=== PATIENT | female | born 1995 | race Caucasian/White ===

== ENCOUNTER 2025-04-25 12:28 | Emergency (ER) | payer OTHER, SELFPAY ==
--- OUTSIDE RECORDS SUMMARY | 2025-04-25 12:31 | XMS_ITS | Continuity of Care Document ---
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 Name Role Phone Unavailable Unavailable Unavailable Allergies, Adverse Reactions, Alerts Substance Reaction Status Criticality No Known Allergies Active No Inform ation Medications Medication Instructions Dosage Effective Dates (start - stop) Status Comments Liletta 18.6 mcg/24 hour (3 years) intrauterine device as directed - No Longer Active Procedures Procedure Date OFFICE OUTPT NEW 60 MIN URINE TEST, BY VISUAL COLOR CO MPARISON METHODS Urinalysis, Auto, w/o Scope COLLECTION OF VENOUS BLOOD BY VENIPUNCTU RE THYROID STIMULATING HORMONE (TSH) IAAD EIA HEP B SURF AG HEPATITIS C ANTIBODY; HIV-1 Antigen, W/HIV-1 & HIV-2 Antibody, Single Re BLOOD COUNT; COMPLETE (CBC), AUTOMATED (HGB, HCT, RBC, WBC AND PLATELET COUNT) SYPHILIS TEST; QUALITATIVE (EG, VDRL, RP R, ART) Advance Directives Directive Yes / No Effective Date File Name No Information Encounters Encounter Description Practice Location Reason(s) For Visit Diagnoses Date Provider Providers Copied on Encounter [facility], [address], [place], [place], [id number] , [place] tel:[phone] [facility] No Information 7 No Information OFFICE OUTPT NEW 60 MIN [facility], [address], [place], [place], [id number] , [place] tel: [phone] [facility] BC consult (chief complaint) Encounter for other general counseling and advice on contraceptionExces sive bleeding in the premenopausal periodEncntr for lithographic photographer exam (general) (routine) w abnormal findings 1-201 7 No Information Family History Family Member Type Diagnosis Age At Onset Problem (finding) No family history of Ca ncer, ovarian Problem (finding) No family history of Ca ncer, colon Problem (finding) No family history of Ca ncer, breast Payers Payer name Insurance type Covered alliance party ID Authoriza tion(s) No Information Social History Type Description Quantity Date Captured Comments Sex Female Smoking Status No Information Chief Complaint And Reason For Visit No Information Reason For Referral Reason For Referral No Information History Of Present Illness Encounter Date Complaint History Of Prese nt Illness BC consult 21 yr old G0 her e for new annual examno pmhx, no pshxSA, ocps--sprintecno papsunhappy with ocps, when started she felt like she was bleeding every day if she only took one, then started taking two per day which stopped her bleedingno stdss/p gardasil Functional Status Date Functional Assessmen t No Information Instructions Date Instruction Additional Infor kika Reversible methods o f contraception discussed with patient. Related to Encounter for other general counseling and advice on contraception Increase physical activity. Rela yash to Encounter for other general counseling and advice on contraception Assessments Type Assessment Date No Information Patient Care Teams Name Effective Dates (start - stop) Status Members No Information
--- OUTSIDE RECORDS SUMMARY | 2025-04-25 12:31 | XMS_ITS | Data Portability ---
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 Plan of Treatment Reminders Order Date Submit Date Provider Last Modified By Organization Details Last Modified Time Details Appointments None recorded . Lab cytology report, thin prep, smear or scraping , cervical or vaginal 2024 025 [email or web address] [facility] (Centralized Electronic Ordering - All Locations), Patient Can Go To The Location Of Their Choice, [address] 5 16:45:01 TSH, ultra-se nsitive, serum 2024 025 [facility], [address], [place], [address], 5 08:23:45 CMP, serum or plasma 2024 025 [facility], [address], [place], [address], 5 08:23:44 lipid panel, serum 2024 025 [facility], [address], [place], [address], 5 08:23:43 CBC 2024 025 [facility], [address], [place], [address], 5 08:23:46 urinalys is, dipstick 2022 023 In-Office Order, Internal Use Only DO Not Attach Compendium DO Not Attach Compendium, Do Not Delete/merge, [id number] 3 10:04:51 culture, urine 2022 023 [facility], [address] [facility] [address], [place], [address], 3 07:13:19 cytology report, thin prep, smear or scraping , cervical or vaginal 2022 023 [facility], [address] [facility] [address], [place], [address], 3 16:13:46 Referral breast surgery referral 2022 023 [facility] Breast Surgery: Sophia francisco MD, [facility], [place], [address], 3 11:40:21 Procedures None recorded . Surgeries None recorded . Imaging US, thyroid 2024 025 [facility] Carrie [facility] Scheduling, [address] [place], [address], 5 17:37:21 XR, lumbosac ral spine, 2 or 3 view 2022 023 [email or web address] Carrie [facility] Scheduling, [address] [place], [address], 4 09:09:33 US, pelvis, transabd ominal + transvag inal 2022 023 [facility], [address] [facility] [place], [address], 3 16:29:29 Medication Orders sumatrip prescott 25 mg tablet 2024 025 [facility] [place], [address], 5 11:38:55 Macrobid 100 mg capsule 2022 023 [email or web address] [facility], [address] [place], [address], 5 11:21:59 naproxen 500 mg tablet 2022 023 [email or web address] [facility], [address] [place], [address], 10:35:47 sumatrip prescott 25 mg tablet 2022 023 RADHA [facility], [address] [place], [address], 10:04:58 Patient TargetsNo targets recorded. Patient Instructions Encounter Date Encounter Id Patient Instructions Last Modified By Organization Details Last Modified Time 09/03/2023 [id number] painful urinatio n (dysuria): care instructions Not available 09/03/2023 10:06:32 abdominal pain: care instructions Not available 09/03/2023 10:04:51 back care and preventing injuries: care instructions Not available 09/03/2023 10:07:31 - Avoid heavy lifting and over-exertion. - Avoid bed-rest do some gentle stretching and continue with normal activities. - Use ice to relieve pain, 15 minutes every 2 4 hours. - Use heat to relax muscles, 15 minutes every 2 4 hours. - Sleep on a firm surface and avoid lying on the sofa. Not available 09/03/2023 10:11:23 Plan pending imaging results. f/u as needed DWP barriers to care: none Not available 09/03/2023 10:11:30 12/14/2024 [id number] Well Visit, Ages 18 to 65: Care Instructions Not available 12/14/2024 11:39:17 Increase intake of fresh fruits, and vegetables. Avoid packaged foods and fast foods. Follow a low salt diet, drink at least 8-10 8oz glasses of water a day, exercise most days of the week. Take all medications as prescribed. Keep appointments with PCP and all specialists. Not available 12/14/2024 11:39:03 Plan pending imaging results. f/u as needed DWP barriers to care: none Not available 12/14/2024 11:39:12 01/11/2025 [id number] learning about breast cancer screening alia Not available 01/11/2025 11:52:10 03/02/2025 [id number] middle ear fluid : care instructions Not available 03/02/2025 15:49:57 Avoid potential triggers, take allergy medication daily. Sleep with windows closed and replace filters in HVAC regularly. Not available 03/02/2025 15:50:15 Follow-up as needed Not available 03/02/2025 15:50:21 Reason for Referral Breast Surgery Referral for Mass of right breast Referring Physician: Usman Vazquez, LEAD COATER, Encounter Date: 07/01/2023 Results Created Date Observation Date Name Description Value Unit Range Abnormal Flag Note LastModifiedBy Organization Detail LastModifiedTime 07/01/2007/03/2023 IGP,C TNGTV ,RFX APTIM A HPV ASCU chlamydia, nuc. acid amp Negati ve negati ve Not Available [facility] ([facility]) [address] [place], [address], 07/04/2023 16:13:46 07/01/2007/03/2023 IGP,C TNGTV ,RFX APTIM A HPV ASCU gonococcus, nuc. acid amp Negati ve negati ve Not Available [facility] ([facility]) [address] [place], [address], 07/04/2023 16:13:46 07/01/20 23 07/03/2023 IGP,C TNGTV ,RFX APTIM A HPV ASCU trich vag by ROBER Negati ve negati ve Not Available [facility] ([facility]) [address] [place], [address], 07/04/2023 16:13:46 07/01/20 23 07/04/2023 IGP,C TNGTV ,RFX APTIM A HPV ASCU diagnosis: Lisset michel NEGAT FIONA FOR INTRA EPITH ELIAL LESIO N OR MIKE OROSCO . THIS SPECI MEN WAS RESCR EENED PART OF OUR QUALI TY CONTR OL PROGR AM. Not Available [facility] ([facility]) [address] [place], [address], 07/04/2023 16:13:46 07/01/20 23 07/04/2023 IGP,C TNGTV ,RFX APTIM A HPV ASCU specimen adequacy: Lisset michel Satis facto ry for evalu ation . Endoc ervic al and/o r squam ous metap lasti c cells (endo cervi renee compo nent) are prese nt. Not Available [facility] ([facility]) [address] [facility], [place], [address], 07/04/2023 16:13:46 07/01/20 23 07/04/2023 IGP,C TNGTV ,RFX APTIM A HPV ASCU clinician provided ICD10: Lisset michel Z01.4 19 Not Available [facility] ([facility]) [address] [place], [address], 07/04/2023 16:13:46 07/01/20 23 07/04/2023 IGP,C TNGTV ,RFX APTIM A HPV ASCU performed by: Lisset Quintanilla Cytot jesus michel (ASCP ) Not Available [facility] ([facility]) [address] [place], [address], 07/04/2023 16:13:46 07/01/20 23 07/04/2023 IGP,C TNGTV ,RFX APTIM A HPV ASCU QC reviewed by: Commen t Alessandro ie A Naylo r, Cytot echno logis t Not Available [facility] ([facility]) [address] [place], [address], 07/04/2023 16:13:46 07/01/20 23 07/04/2023 IGP,C TNGTV ,RFX APTIM A HPV ASCU . . Not Available [facility] ([facility]) [address] [facility], [place], [address], 07/04/2023 16:13:46 07/01/20 23 07/04/2023 IGP,C TNGTV ,RFX APTIM A HPV ASCU note: Commen t The Pap smear is a scree sharlene test desoctavia almazan to aid in the detec tion of bhakti ligna nt and malig nant condi tions of the uteri ne cervi x. It is not a diagn ostic proce dure and shoul d not be used as the sole means of detec ting cervi renee cance r. Both false -posi tive and false -nega tive repor ts do occur . Not Available [facility] ([facility]) [address] [facility], [place], [address], 07/04/2023 16:13:46 07/01/20 23 07/04/2023 IGP,C TNGTV ,RFX APTIM A HPV ASCU test methodology: Commen t This liqui d based ThinP rep(R ) pap test was scree tha with the use of an image guide d syste m. Not Available [facility] ([facility]) [address] [facility], [place], [address], 07/04/2023 16:13:46 07/01/20 23 07/04/2023 IGP,C TNGTV ,RFX APTIM A HPV ASCU . Commen t The HPV DNA refle x crite baldo were not met with this speci men resul t there fore, no HPV testi ng was perfo rmed. Not Available [facility] ([facility]) [address] [place], [address], 07/04/2023 16:13:46 09/03/20 23 09/05/2023 URINE CULTU RE,CO MPREH ENSIV E urine culture,comp rehensive Final report Not Available [facility] ([facility]) [address] [facility], [place], [address], 09/05/2023 07:13:19 09/03/20 23 09/05/2023 URINE CULTU RE,CO MPREH ENSIV E result 1 Commen t Mixed uroge nital darlin 10,00 0-25, 000 colon y formi ng units per mL Not Available [facility] ([facility]) [address] [facility], [place], [address], 09/05/2023 07:13:19 09/03/20 23 09/03/2023 urina lysis , dipst ick Leukocytes Trace Not Available In-Offi ce Order Internal Use Only DO Not Attach Compendium DO Not Attach Compendium, Do Not Delete/merge, 09/03/2023 09:50:53 09/03/20 23 09/03/2023 urina lysis , dipst ick Nitrite negati ve Not Available In-Office Order Internal Use Only DO Not Attach Compendium DO Not Attach Compendium, Do Not Delete/merge, 09/03/2023 09:50:53 09/03/20 23 09/03/2023 urina lysis , dipst ick Urobilinogen 1 Not Available In-Of fice Order Internal Use Only DO Not Attach Compendium DO Not Attach Compendium, Do Not Delete/merge, 09/03/2023 09:50:53 09/03/20 23 09/03/2023 urina lysis , dipst ick Protein Negati ve Not Available In-Office Order Internal Use Only DO Not Attach Compendium DO Not Attach Compendium, Do Not Delete/merge, 09/03/2023 09:50:53 09/03/20 23 09/03/2023 urina lysis , dipst ick pH 5.5 Not Available In-Office Order Internal Use Only DO Not Attach Compendium DO Not Attach Compendium, Do Not Delete/merge, 09/03/2023 09:50:53 09/03/2009/03/2023 urina lysis , dipst ick Blood Non-He molyze d: Trace Not Available In-Office Order Internal Use Only DO Not Attach Compendium DO Not Attach Compendium, Do Not Delete/merge, 09/03/2023 09:50:53 09/03/2009/03/2023 urina lysis , dipst ick Specific [place] 1.015 Not Available In-Off ice Order Internal Use Only DO Not Attach Compendium DO Not Attach Compendium, Do Not Delete/merge, 09/03/2023 09:50:53 09/03/2009/03/2023 urina lysis , dipst ick Ketone Negati ve Not Available In-Office Order Internal Use Only DO Not Attach Compendium DO Not Attach Compendium, Do Not Delete/merge, [id number] 09/03/2023 09:50:53 09/03/2009/03/2023 urina lysis , dipst ick Bilirubin Negati ve Not Available In-Office Order Internal Use Only DO Not Attach Compendium DO Not Attach Compendium, Do Not Delete/merge, 09/03/2023 09:50:53 09/03/2009/03/2023 urina lysis , dipst ick Glucose Negati ve Not Available In-Office Order Internal Use Only DO Not Attach Compendium DO Not Attach Compendium, Do Not Delete/merge, 09/03/2023 09:50:53 09/03/20 23 09/03/2023 urina lysis , dipst ick Appearance Slight ly Cloudy Not Available In-Office Order Internal Use Only DO Not Attach Compendium DO Not Attach Compendium, Do Not Delete/merge, 09/03/2023 09:50:53 09/03/20 23 09/03/2023 urina lysis , dipst ick Color Yellow Not Available In-Office Order Internal Use Only DO Not Attach Compendium DO Not Attach Compendium, Do Not Delete/merge, 09/03/2023 09:50:53 12/15/19 25 12/15/2024 LIPID PANEL cholesterol, total 243 mg/dL 100-19 9 above high normal Not Available [facility] ([facility]) [address] [place], [address], 12/15/2024 08:23:43 12/15/19 25 12/15/2024 LIPID PANEL triglyceride s 36 mg/dL 0-149 Not Available [facility] ([facility]) [address] [place], [address], 12/15/2024 08:23:43 12/15/19 25 12/15/2024 LIPID PANEL HDL cholesterol 70 mg/dL >39 Not Available [facility]) [address] [place], [address], 12/15/2024 08:23:43 12/15/19 25 12/15/2024 LIPID PANEL VLDL cholesterol renee 5 mg/dL 5-40 Not Available [facility] ([facility]) [address] [place], [address], 12/15/2024 08:23:43 12/15/19 25 12/15/2024 LIPID PANEL LDL chol calc ([facility]) 168 mg/dL 0-99 above high normal Not Available [facility] ([facility]) [address] [place], [address], 12/15/2024 08:23:43 12/15/19 25 12/15/2024 COMP. METAB OLIC PANEL (14) glucose 80 mg/dL 70-99 Not Available [facility] ([facility]) [address] [place], [address], 12/15/2024 08:23:44 12/15/19 25 12/15/2024 COMP. METAB OLIC PANEL (14) BUN 13 mg/dL 6-20 Not Available [facility] ([facility]) [address] [place], [address], 12/15/2024 08:23:44 12/15/19 25 12/15/2024 COMP. METAB OLIC PANEL (14) creatinine 0.66 mg/dL 0.57-1 .00 Not Available [facility] ([facility]) [address] [facility], [place], [address], 12/15/2024 08:23:44 12/15/19 25 12/15/2024 COMP. METAB OLIC PANEL (14) eGFR 123 mL/mi n/1.7 3 >59 Not Available [facility] ([facility]) [address] [facility], [place], [address], 12/15/2024 08:23:44 12/15/19 25 12/15/2024 COMP. METAB OLIC PANEL (14) BUN/creatini ne ratio 20 9-23 Not Available [facility] ([facility]) [address] [facility], [place], [address], 12/15/2024 08:23:44 12/15/19 25 12/15/2024 COMP. METAB OLIC PANEL (14) sodium 138 mmol/ L 134-14 4 Not Available [facility] ([facility]) [address] [place], [address], 12/15/2024 08:23:44 12/15/19 25 12/15/2024 COMP. METAB OLIC PANEL (14) potassium 4.5 mmol/ L 3.5-5. 2 Not Available [facility] ([facility]) [address] [place], [address], 12/15/2024 08:23:44 12/15/19 25 12/15/2024 COMP. METAB OLIC PANEL (14) chloride 105 mmol/ L 96-106 Not Available [facility] ([facility]) [address] [facility], [place], [address], 12/15/2024 08:23:44 12/15/19 25 12/15/2024 COMP. METAB OLIC PANEL (14) carbon dioxide, total 21 mmol/ L 20-29 Not Available [facility] ([facility]) [address] [facility] [place], [address], 12/15/2024 08:23:44 12/15/19 25 12/15/2024 COMP. METAB OLIC PANEL (14) calcium 9.2 mg/dL 8.7-10 .2 Not Available [facility] ([facility]) [address] [facility] [place], [address], 12/15/2024 08:23:44 12/15/19 25 12/15/2024 COMP. METAB OLIC PANEL (14) protein, total 6.8 g/dL 6.0-8. 5 Not Available [facility] ([facility]) [address] [facility] [place], [address], 12/15/2024 08:23:44 12/15/19 25 12/15/2024 COMP. METAB OLIC PANEL (14) albumin 4.4 g/dL 4.0-5. 0 Not Available [facility] ([facility]) [address] [facility] [place], [address], 12/15/2024 08:23:44 12/15/19 25 12/15/2024 COMP. METAB OLIC PANEL (14) globulin, total 2.4 g/dL 1.5-4. 5 Not Available [facility] ([facility]) [address] [facility] [place], [address], 12/15/2024 08:23:44 12/15/19 25 12/15/2024 COMP. METAB OLIC PANEL (14) bilirubin, total 0.3 mg/dL 0.0-1. 2 Not Available [facility] ([facility]) [address] [facility] [place], [address], 12/15/2024 08:23:44 12/15/19 25 12/15/2024 COMP. METAB OLIC PANEL (14) alkaline phosphatase 43 IU/L 44-121 below low normal Not Available [facility] ([facility]) [address] [place], [address], 12/15/2024 08:23:44 12/15/19 25 12/15/2024 COMP. METAB OLIC PANEL (14) AST (SGOT) 12 IU/L 0-40 Not Available [facility] ([facility]) [address] [place], [address], 12/15/2024 08:23:44 12/15/19 25 12/15/2024 COMP. METAB OLIC PANEL (14) ALT (SGPT) 8 IU/L 0-32 Not Available [facility] ([facility]) [address] [facility], [place], [address], 12/15/2024 08:23:44 12/15/19 25 12/15/2024 TSH RFX ON ABNOR MAL TO FREE T4 TSH 2.600 uIU/m L 0.450- 4.500 Not Available [facility] ([facility]) [address] [place], [address], 12/15/2024 08:23:45 12/15/19 25 12/15/2024 CBC, PLATE LET, NO DIFFE RENTI AL WBC 5.8 x10e3 /uL 3.4-10 .8 Not Available [facility] ([facility]) [address] [place], [address], 12/15/2024 08:23:46 12/15/19 25 12/15/2024 CBC, PLATE LET, NO DIFFE RENTI AL RBC 4.35 x10e6 /uL 3.77-5 .28 Not Available [facility] ([facility]) [address] [place], [address], 12/15/2024 08:23:46 12/15/19 25 12/15/2024 CBC, PLATE LET, NO DIFFE RENTI AL hemoglobin 13.5 g/dL 11.1-1 5.9 Not Available [facility] ([facility]) [address] [facility], [place], [address], 12/15/2024 08:23:46 12/15/1912/15/2024 CBC, PLATE LET, NO DIFFE RENTI AL hematocrit 40.4 % 34.0-4 6.6 Not Available [facility] ([facility]) [address] [facility], [place], [address], 12/15/2024 08:23:46 12/15/19 25 12/15/2024 CBC, PLATE LET, NO DIFFE RENTI AL MCV 93 fL 79-97 Not Available [facility] ([facility]) [address] [facility], [place], [address], 12/15/2024 08:23:46 12/15/19 25 12/15/2024 CBC, PLATE LET, NO DIFFE RENTI AL MCH 31.0 pg 26.6-3 3.0 Not Available [facility] ([facility]) [address] [facility], [place], [address], 12/15/2024 08:23:46 12/15/1912/15/2024 CBC, PLATE LET, NO DIFFE RENTI AL MCHC 33.4 g/dL 31.5-3 5.7 Not Available [facility] ([facility]) [address] [facility], [place], [address], 12/15/2024 08:23:46 12/15/1912/15/2024 CBC, PLATE LET, NO DIFFE RENTI AL RDW 11.9 % 11.7-1 5.4 Not Available [facility] ([facility]) [address] [facility], [place], [address], 12/15/2024 08:23:46 12/15/19 25 12/15/2024 CBC, PLATE LET, NO DIFFE RENTI AL platelets 215 x10e3 /uL 150-45 0 Not Available [facility] ([facility]) [address] [place], [address], 12/15/2024 08:23:46 01/12/20 25 01/13/2025 IGP, RFX APTIM A HPV ASCU diagnosis: LISSET JAIMES FOR INTRA EPITH ELIAL LESIO N OR MIKE OROSCO . Not Available [facility] ([facility]) [address] [facility], [place], [address], 01/13/2025 16:45:01 01/12/20 25 01/13/2025 IGP, RFX APTIM A HPV ASCU specimen adequacy: LISSET Michel Satis facto ry for evalu ation . No endoc ervic al compo nent is ident ified . Not Available [facility] ([facility]) [address] [facility], [place], [address], 01/13/2025 16:45:01 01/12/20 25 01/13/2025 IGP, RFX APTIM A HPV ASCU clinician provided ICD10: LISSET Michel Z01.4 19 Not Available [facility] ([facility]) [address] [place], [address], 01/13/2025 16:45:01 01/12/20 25 01/13/2025 IGP, RFX APTIM A HPV ASCU performed by: Desi Cardenas (ASCP ) Not Available [facility] ([facility]) [address] [place], [address], 01/13/2025 16:45:01 01/12/20 25 01/13/2025 IGP, RFX APTIM A HPV ASCU . . Not Available [facility] ([facility]) [address] [facility], [place], [address], 01/13/2025 16:45:01 01/12/20 25 01/13/2025 IGP, RFX APTIM A HPV ASCU note: COMMEN T The Pap smear is a scree sharlene test desig tha to aid in the detec tion of bhakti ligna nt and malig nant condi tions of the uteri ne cervi x. It is not a diagn ostic proce dure and shoul d not be used as the sole means of detec ting cervi renee cance r. Both false -posi tive and false -nega tive repor ts do occur . Not Available [facility] ([facility]) [address] [place], [address], 01/13/2025 16:45:01 01/12/20 25 01/13/2025 IGP, RFX APTIM A HPV ASCU test methodology: COMMEN T This liqui d based ThinP rep(R ) pap test was scree tha with the use of an image guide lucio ohara. Not Available [facility] ([facility]) [address] [place], [address], 01/13/2025 16:45:01 01/12/20 25 01/13/2025 IGP, RFX APTIM A HPV ASCU . COMMEN T The HPV DNA refle x crite baldo were not met with this speci men resul t there fore, no HPV testi ng was perfo rmed. Not Available [facility] ([facility]) [address] [place], [address], 01/13/2025 16:45:01 01/12/20 25 01/13/2025 IGP, RFX APTIM A HPV ASCU diagnosis: COMMEN T NEGAT FIONA FOR INTRA EPITH ELIAL LESIO N OR MALIG ANA LUISA . Not Available [facility] ([facility]) [address] [place], [address], 01/25/2025 21:46:36 01/12/20 25 01/13/2025 IGP, RFX APTIM A HPV ASCU specimen adequacy: COMMEN T Satis facto ry for evalu ation . No endoc ervic al compo nent is ident ified . Not Available [facility] ([facility]) [address] [place], [address], 01/25/2025 21:46:36 01/12/20 25 01/13/2025 IGP, RFX APTIM A HPV ASCU clinician provided ICD10: LISSET Michel Z01.4 19 Not Available [facility] ([facility]) [address] [place], [address], 01/25/2025 21:46:36 01/12/20 25 01/13/2025 IGP, RFX APTIM A HPV ASCU performed by: LISSET babin, Cytol ogist (ASCP ) Not Available [facility] ([facility]) [address] [place], [address], 01/25/2025 21:46:36 01/12/20 25 01/13/2025 IGP, RFX APTIM A HPV ASCU . . Not Available [facility] ([facility]) [address] [place], [address], 01/25/2025 21:46:36 01/12/20 25 01/13/2025 IGP, RFX APTIM A HPV ASCU note: LISSET Michel The Pap smear is a scree sharlene test desig tha to aid in the detec tion of bhakti ligna nt and malig nant condi tions of the uteri ne cervi x. It is not a diagn ostic proce dure and shoul d not be used as the sole means of detec ting cervi renee cance r. Both false -posi tive and false -nega tive repor ts do occur . Not Available [facility] ([facility]) [address] [place], [address], 01/25/2025 21:46:36 01/12/20 25 01/13/2025 IGP, RFX APTIM A HPV ASCU test methodology: LISSET Michel This liqui d based ThinP rep(R ) pap test was scree tha with the use of an image guide lucio systvic m. Not Available [facility] ([facility]) [address] [facility], [place], [address], 01/25/2025 21:46:36 01/12/20 25 01/13/2025 IGP, RFX APTIM A HPV ASCU . COMMEN T The HPV DNA refle x crite baldo were not met with this speci men resul t there fore, no HPV testi ng was perfo rmed. Not Available [facility] ([facility]) [address] [facility], [place], [address], 01/25/2025 21:46:36 09/03/[address], abdom en + pelvi s, w/ contr ast No observ ation record ed. [facility] Not Available 08/08 10:04:47 12/23/19 25 12/18/2024 US, thyro id No observ ation record ed. [email or web address] [address] , [place], [address], 12/30/2024 09:22:07 Result Notes None recorded. Problems Name Problem SNOMED Code Status Onset Date Resolution Date Notes Provider Name and Address Organization Details Recorded Time Late entry into care [id number] Completed pt educated on importan ce of care. Susannah Fuller MA [facility], [place] - SI 11:33:33 Depressi ve disorder [id number] Completed 03/07/21: pt declined medicati on and counseli ng and reports depressi on resolved . PT notified to let us know if issues occur and educated on warning signs 02/01/21: Counsele d on depressi on manageme nt includin g establis rai good sleep hygiene and routine. Pt wanting to Fluoxeti ne. Pt educated on medicati on risks includin g risks in pregnanc y and black box warnings and instruct ions given. Pt notified to call office if issues occur. Counseli ng referral ordered and pt notified of walk in counseli ng appointm ent at [facility] in [place], numbers given to pt to set up appointm ent and pt notified to call office if issues with referral . Follow up with monika lou and Follow up here in 1 month. Call office if issues occur before then. Avelino valdes on seeking help from 911 or go to ER for suicidal or homicida l thoughts . Pt verbaliz ed understa nding. Susannah ANIKA Fuller [place], [place] - [place] 11:33:33 Anemia of pregnanc y [id number] Completed Pt educated on importan ce of treatmen t. Pt educated on iron suppleme nt with colace and diet changes. Repeat labs at 28 weeks. Susannah ANIKA Fuller [place], [place] - [facility] 11:33:33 Low back pain in pregnanc y [id number] Completed Pt educated on manageme nt and use of maternit y belt and exercise and stretchi ng. 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 Recommen ded PT referral . Pt declined . Pt educated on warning signs and notified to call call office if issues occur. Susannah ANIKA Fuller [place], [place] - [place] 1 11:33:33 Seasonal allergy [id number] Sherif Balderas APN, OUTPATIENT ADMITTING CLERK-C Attn: Roddy g,[address] [place], [address], [place] - [facility] 3 09:50:23 Migraine [id number] Active Jane Balderas APN, OUTPATIENT ADMITTING CLERK-C Attn: Roddy g,[address] [place], [address], [place] - [facility] 3 09:50:23 Pregnanc y [id number] Completed 201706/10/2018 Bharti Vasques LPN null, [place] - [facility] 1 09:34:34 Pregnanc y [id number] Completed 202007/21/2021 Bharti Vasques LPN null, [place] - [facility] 1 09:34:34 Administ ration of diphther ia, pertussi s, and tetanus vaccine Completed 2020 Susannah Fuller MA [place], [place] - [place] 11:33:33 Generali zed anxiety disorder [id number] Active 2021 Jane Balderas APN OUTPATIENT ADMITTING CLERK-C Attn: Roddy giovanny,[address] [facility], [place], [place], [address] [place] [address] 2, [facility], [facility] 3 09:50:23 Migraine with aura [id number] Active 2021 Jane Balderas APN, OUTPATIENT ADMITTING CLERK-C Attn: Roddy giovanny,[address] [facility], [place], [place], [address] [place] [address] 2, [facility], [facility] 3 09:50:23 Nasal congesti on [id number] Active 2021 Jane Balderas APN OUTPATIENT ADMITTING CLERK-C Attn: Leathaakin baltazar,[address] [facility], [place], [place], [address] [place] [address] 2, [facility], [facility] 3 09:50:23 Hyperlip idemia [id number] Active 2021 Jane Balderas APN OUTPATIENT ADMITTING CLERK-C Attn: Roddy giovanny,[address] [facility], [place], [place], [address] [place] [address] 2, [facility] 3 09:50:23 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 Procedures Surgical History Date Name Laterality Status Provider Name and Address Organization Details Recorded Time 5 Date of Last Pap Smear completed Jenifer Muñiz MA [facility] 01/15/2025 09:54:55 4 Breast Implants completed Lashell Ivory [facility] 01/11/2025 10:41:26 Imaging Results None recorded. Procedure Notes None recorded. Medical Equipment None Reported. Allergies No known drug allergies Medications Name Sig Start Date Stop Date Status Note LastModified by Organization Details LastModified Time stool [id number] cap TAKE 1 CAPSULE BY MOUTH TWICE DAILY 11/24 /2021 completed Not Available Not Available Not Available iron 65mg tab TAKE 1 TABLET BY MOUTH THREE TIMES DAILY 08/30 completed Not Available Not Available Not Available celecoxib 200 mg capsule TAKE 2 CAPSULES BY MOUTH THE NIGHT BEFORE SURGERY AND THEN 1 CAPSULE BY MOUTH TWICE DAILY 12/14 completed Not Available Not Available Not Available Colace 100 mg capsule Take 1 capsule twice a day by oral route. 12/29 completed Not Available Not Available Not Available cefuroxime axetil 250 mg tablet TAKE 2 TABLETS BY MOUTH THE NIGHT BEFORE SURGERY THEN 1 TWICE DAILY 12/14 completed Not Available Not Available Not Available cetirizine 10 mg tablet Take 1 tablet every day by oral route. active Not Available Not Available No t Available sumatriptan 25 mg tablet Take by mouth one tablet at onset of headache, may repeat in two hours if not improved. 2024 active Not Available Not Available Not Avai lable terconazole 0.8 % vaginal cream APPLY 1 APPLICATO RFUL VAGINALLY ONCE DAILY AT BEDTIME FOR 3 DAYS 08/30 completed Not Available Not Available Not Available triamcinolo ne acetonide 0.5 % topical ointment APPLY OINTMENT TOPICALLY TO AFFECTED AREA TWICE DAILY 08/10 completed Not Available Not Available Not Available metronidazo le 500 mg tablet Take 1 tablet twice a day by oral route. 07/08 completed Not Available Not Available Not Available sulfamethox azole 800 mg-trimetho prim 160 mg tablet TAKE 1 TABLET BY MOUTH TWICE DAILY FOR 3 DAYS 07/01 completed Not Available Not Available Not Available Vitamin tablet Take 1 tablet every day by oral route. 11/02 completed Not Available Not Available Not Available oxycodone-a cetaminophe n 5 mg-325 mg tablet TAKE 1 TABLET BY MOUTH EVERY 4 HOURS NEEDED FOR PAIN 12/14 completed Not Available Not Available Not Available Metrogel Vaginal 0.75 % (37.5 mg/5 gram) Insert 1 applicato rful every day by vaginal route. 11/02 completed Not Available Not Available Not Available ibuprofen 600 mg tablet 11/02 completed Not Available Not Available Not Available norethindro ne (contracept fiona) 0.35 mg tablet Take 1 tablet every day by oral route. 11/02 completed Not Available Not Available Not Available Terazol 7 0.4 % vaginal cream Insert 1 applicato rful every day by vaginal route for 7 days. 03/13 completed Not Available Not Available Not Available fluticasone propionate 50 mcg/actuati on nasal spray,suspe nsion USE 1 SPRAY(S) IN EACH NOSTRIL TWICE DAILY FOR 7 DAYS 01/25 completed Not Available Not Available Not Available sertraline 50 mg tablet TAKE 1 TABLET BY MOUTH ONCE DAILY 04/12 completed Not Available Not Available Not Available naproxen 500 mg tablet TAKE 1 TABLET BY MOUTH TWICE DAILY 01/11 completed Not Available Not Available Not Available diazepam 5 mg tablet TAKE 1 TABLET BY MOUTH THREE TIMES DAILY NEEDED FOR MUSCLE SPASMS 01/11 completed Not Available Not Available Not Available Sprintec (28) 0.25 mg-0.035 mg tablet Take 1 tablet every day by oral route. 12/29 completed Not Available Not Available Not Available rosuvastati n 10 mg tablet Take 1 tablet every day by oral route. 12/25 completed Not Available Not Available Not Available nitrofurant oin monohydrate /macrocryst als 100 mg capsule TAKE 1 CAPSULE BY MOUTH EVERY 12 HOURS FOR 5 DAYS 12/14 completed Not Available Not Available Not Available 02/06 completed otc Not Available Not Available Not Available FeroSul 325 mg (65 mg iron) tablet TAKE 1 TABLET BY MOUTH THREE TIMES DAILY 12/29 completed Not Available Not Available Not Available Lo Loestrin Fe 11/28 completed Not Available Not Available Not Available 28 mg iron-800 mcg tablet Take 1 tablet every day by oral route. 08/30 completed Not Available Not Available Not Available Se- 19 29 mg iron-1 mg tablet TAKE 1 TABLET BY MOUTH ONCE DAILY 08/30 completed Not Available Not Available Not Available Vitals Date Recorded Body height Body mass index (BMI) Body weight Oxygen saturation Oxygen saturation in Arterial blood by Pulse oximetry Heart rate Body temperature Systolic And Diastolic Provider Name and Address Organization Details Last Updated DateTime 5 152.4 cm 21.5 kg/m2 80168.9 1 g 98 % 98 % 81 /min 98.9 [degF] 103/71 mm[Hg] Samantha Araujo MA [facility] 5 11:25:36 Date Recorded Body height Body mass index (BMI) Body weight Heart rate Systolic And Diastolic Provider Name and Address Organization Details Last Updated DateTime 01/11/2025 152.4 cm 21.4 kg/m2 95306.44 g 80 /min 119/78 mm[Hg] Lashell Ivory [facility] 01/11/2025 10:39:41 Date Recorded Body height Body mass index (BMI) Body weight Oxygen saturation Oxygen saturation in Arterial blood by Pulse oximetry Heart rate Respiratory rate Body temperature Systolic And Diastolic Provider Name and Address Organization Details Last Updated DateTime 5 152.4 cm 21.3 kg/m2 65563.5 7 g 98 % 98 % 92 /min 16 /min 98.7 [degF] 108/76 mm[Hg] Samantha Pena MA [facility] 5 12:30:28 Date Recorded Body height Provider Name an d Address Organization Details Last Updated DateTime 07/01/2023 152.4 cm Susannah Fuller MA [facility] 07/01/2023 15:22:46 Date Recorded Body height Body mass index (BMI) Body weight Oxygen saturation Oxygen saturation in Arterial blood by Pulse oximetry Heart rate Respiratory rate Body temperature Systolic And Diastolic Provider Name and Address Organization Details Last Updated DateTime 3 152.4 cm 19.7 kg/m2 32083.8 3 g 96 % 96 % 86 /min 16 /min 98.3 [degF] 104/68 mm[Hg] JESSICA Pollock [facility] 3 09:41:36 Social History Question Answer Notes LastModified by Organizat ion Details LastModified Time Tobacco Smoking Status Never Smoker Taya Garcia MA null, [facility] 01/31/2015 10:36:23 Do You Have An Advance Directive? No Information n ot available 12/29/2021 If You Are , What Was Your Level Of Alcohol Consumption Prior To ? None Information not available 11/28/2017 Animal Exposure? Yes [email or web address] Informat ion not available 01/31/2015 Do You Wear A Helmet When Biking? No [email or web address] Information not available 11/21/2015 Are You Blind Or Do You Have Difficulty Seeing? No Information n ot available 12/29/2021 Is Blood Transfusion Acceptable In An Emergency? Yes Information not available 11/28/2017 What Is Your Level Of Caffeine Consumption? Moderate [email or web address] Information not available 11/21/2015 Live With Cats/exposure To Cat Litter Yes Information not available 11/28/2017 How Much Tobacco Do You Chew? None Information not available 11/28/2017 What Type Of Cnc Applications Engineer Do You Use? None [email or web address] Information not available 11/21/2015 In The 14 Days Before Symptom Onset, Have You Had Close Contact With A Laboratory-confirm ed COVID-19 While That Case Was Ill? No Information n ot available 12/29/2021 In The 14 Days Before Symptom Onset, Have You Had Close Contact With A Person Who Is Under Investigation For COVID-19 While That Person Was Ill? No Information not available 12/29/2021 Have You Been To An Area Known To Be High Risk For COVID-19? No Information not available 12/29/2021 Are You Deaf Or Do You Have Serious Difficulty Hearing? No Information not available 12/29/2021 What Type Of Diet Are You Following? REGULAR [email or web address] Information n ot available 01/31/2015 Which Illicit Or Recreational Drugs Have You Used? Denies Information not available 11/28/2017 Education 12 Information no t available 11/28/2017 Have There Been Any Changes To Your Family Or Social Situation? No [email or web address] Information no t available 11/21/2015 Frequent Air Travel No Information not available 11/28/2017 Are There Any Guns Present In Your Home? No Information not available 12/29/2021 Illicit Drugs Pre- Denies Information not available 11/28/2017 Do You Use Insect Repellent Routinely? Yes [email or web address] Information not available 01/31/2015 Live Alone Or With Others? With Others Information not available 11/28/2017 Car Seat Type Or Seat Belt? Seat Belt Information not available 01/31/2015 Parent Involvement? Both Parents Involved [email or web address] Information not available 01/31/2015 Riding In Car Front Seat? Yes [email or web address] Information not available 01/31/2015 Marital Status Single Informatio n not available 11/28/2017 What Was The Date Of Your Most Recent Tobacco Screening? 01/11/2025 [email or web address] Information not available 01/11/2025 How Many Children Do You Have? 2 Information not available 12/29/2021 What Is Your Parents' Marital Status? [email or web address] Information not available 01/31/2015 Performs Monthly Self-breast Exam? No Information no t available 11/02/2020 Pool Exposure No [email or web address] Informatio n not available 11/21/2015 Do You Use Protection During Sex? No Information not available 11/02/2020 What Is Your Relationship Status? Single Information not available 06/10/2018 Do You Use Your Seat Belt Or Car Seat Routinely? Yes Information not available 12/29/2021 Seat Belts Used Routinely Yes Information not available 11/28/2017 Are You Sexually Active? Yes Information not available 11/28/2017 Do You Have Any Siblings? 1 Sister 1 Brother Information not available 01/31/2015 Do You Have Smoke And Carbon Monoxide Detectors In Your Home? Yes Information not available 01/31/2015 Are You Passively Exposed To Smoke? Yes [email or web address] Information no t available 01/31/2015 How Much Tobacco Do You Smoke? No Information not available 11/02/2020 Smoking Pre- No Information not available 11/28/2017 What Types Of Sporting Activities Do You Participate In? None [email or web address] Information not available 11/21/2015 General Stress Level Medium Information not available 11/28/2017 Do You Use Sunscreen Routinely? No Information not available 11/28/2017 Has Tobacco Cessation Counseling Been Provided? No [email or web address] Information not available 12/25/2022 Year In School 12 [email or web address] Informati on not available 11/21/2015 Sex: Female Functional Status Question Answer Note LastModified by Organizat ion Details LastModified Time Do you use any illicit or recreational drugs? No [email or web address] Information not available 01/25/2022 Do you or have you ever used any other forms of tobacco or nicotine? No [email or web address] Information not available 01/25/2022 What is your level of alcohol consumption? None Information not available 11/28/2017 Do you or have you ever used smokeless tobacco? Never used [email or web address] Information not available 11/02/2020 Are you currently employed? Yes Information not available 12/25/2022 Are you able to care for yourself? 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 Never used electronic cigarettes Information not available 11/02/2020 What is your exercise level? None Information not available 12/29/2021 Mental Status Question Answer Note LastModified by Organization D etails LastModified Time Do you feel stressed (tense, restless, nervous, or anxious, or unable to sleep at night)? [id number] [email or web address] Information not available 12/14/2024 Are you or have you been involved with bullying? No [email or web address] Information not available 01/31/2015 Family History Relationship Description Onset Age of this Age Resolved Age Notes LastModified by Organization Details LastModified Time Maternal Grandmother [facility] Not available 2017 09:05:28 Paternal Grandmother Leukemia [place] Not available 11/08 09:05:16 Father Hypercholest erolemia [place] Not available 2017 09:05:52 Paternal Grandfather Hypercholest erolemia [place] Not available 2017 09:05:52 Medical History Condition Response Coronary Artery Disease N Other N Atrial Fibrillation N High Blood Pressure N Blood Diseases N Breast Cancer N Lung Disease N Depression Y COPD N Blood Clots N Developmental or Behavioral Disorders N Breast Problem N Premature N Anesthesia Complications N Headaches/Migraines Y Anxiety Disorder Y Muscle, Joint, or Bone Problems N Vision or Eye Problems N Head Injury/Concussion N Infertility N Polyps N Acid Reflux (GERD) N Cancer N Stroke N ADHD N Endometriosis N Bladder or Kidney Problems N High Cholesterol N Liver Disease N Schizophrenia N Headaches Y Ear or Hearing Problems N Thyroid Problems N Kidney or Bladder Problems N GI Problems N Acne Y Eating Disorder N Skin Problems N Anemia N Constipation N Heart Attack (OK) N Diabetes N Ovarian Cancer N Bedwetting N Blood Transfusions N Heart Problems/Murmur N Seizures/Epilepsy N Abuse/Domestic Violence N Asthma N Allergies N Substance Abuse N Hepatitis N Heart Disease N Pre-Eclampsia N Chicken Pox Y Heart Failure N Autism Spectrum Disorder (ASD) N Osteoporosis N Gynecological History Statement/Question Response Flow Moderate Date of LMP 02/17/2025 On BCP's at Conception? N STIs/STDs N HPV Vaccine Y Duration of Flow (days) 6 Age at Menarche 14 Current Control Method None Age at First Child 22 Sexually Active? Y Menses Monthly Y Date of Last Pap Smear 01/11/2025 Sexual Problems? N LMP Approximate Desired Control Method None Obstetrics History GPAL:G 2 P 2 0 0 3 Type Value Multiple Births 0 Full Term 2 Induced 0 Spontaneous 0 Premature 0 Living 3 Ectopics 0 Total 2 Immunizations Vaccine Type Date Status Note Provider Nam e and Address Organization Details Recorded Time MMR 9 completed Not Available [facility] 08/30/2023 11:00:16 Hib, unspecified formulation 2 completed Not Available [facility] 08/30/2023 11:00:16 OPV 8 completed Not Available [facility] 08/30/2023 11:00:16 Hep A, unspecified formulation 9 completed Not Available [facility] 08/30/2023 11:00:16 DTP-Hib 8 completed Not Available [facility] 08/30/2023 11:00:16 Tdap 8 completed Not Available [facility] 10/24/2019 02:40:23 Hib, unspecified formulation 9 completed Not Available [facility] 08/30/2023 11:00:16 MMR 9 completed Not Available [facility] 08/30/2023 11:00:16 Hib, unspecified formulation 8 completed Not Available [facility] 08/30/2023 11:00:16 OPV 2 completed Not Available [facility] 08/30/2023 11:00:16 Hep B, adolescent or pediatric 3 completed Not Available [facility] 08/30/2023 11:00:16 DTaP 8 completed Not Available [facility] 08/30/2023 11:00:16 MMR 3 completed Not Available [facility] 08/30/2023 11:00:16 HPV, quadrivalent 9 completed Not Available [facility] 08/30/2023 11:00:16 meningococcal MCV4, unspecified formulation 9 completed Not Available [facility] 08/30/2023 11:00:16 Hep B, adolescent or pediatric 8 completed Not Available [facility] 08/30/2023 11:00:16 Hep A, ped/adol, 2 dose 0 completed Not Available [facility] 08/30/2023 11:00:16 Tdap 9 completed Not Available [facility] 08/30/2023 11:00:16 OPV 8 completed Not Available [facility] 08/30/2023 11:00:16 DTaP 3 completed Not Available [facility] 08/30/2023 11:00:16 IPV 8 completed Not Available [facility] 08/30/2023 11:00:16 varicella 1 completed Not Available [facility] 08/30/2023 11:00:16 DTaP 8 completed Not Available [facility] 08/30/2023 11:00:16 Hib, unspecified formulation 8 completed Not Available [facility] 08/30/2023 11:00:16 Hep B, adolescent or pediatric 8 completed Not Available [facility] 08/30/2023 11:00:16 Hep B, adolescent or pediatric 8 completed Not Available [facility] 08/30/2023 11:00:16 HPV, quadrivalent 2 completed Not Available [facility] 08/30/2023 11:00:16 Hib, unspecified formulation 8 completed Not Available [facility] 08/30/2023 11:00:16 DTaP 8 completed Not Available [facility] 08/30/2023 11:00:16 OPV 8 completed Not Available [facility] 08/30/2023 11:00:16 HPV, quadrivalent 0 completed Not Available [facility] 08/30/2023 11:00:16 Hib, unspecified formulation 8 completed Not Available [facility] 08/30/2023 11:00:16 DTaP 9 completed Not Available [facility] 08/30/2023 11:00:16 Tdap 1 completed Bharti Vasques LPN null, [place] - [facility] 05/16/2021 09:31:02 Meningococcal MCV4O 5 completed Not Available [facility] 10/24/2019 02:48:29 Past Encounters Encounter ID Performer Location Encounter Start Date Encounter Closed Date Diagnosis/Indication Diagnosis SNOMED-CT Code Diagnosis ICD10 Code Diagnosis Note [id number] MD Dejuan Spears (Peds) [address] [place] [address] 01/31/2015 10:17:23 01/31/2015 12:48:35 Seasonal allergy 369865284 discussed keeping windows closed, trigger avoidance, etc [id number] MD Anabel Spearshalto (Peds) [address] [place] [address] 06/29/2015 08:35:05 06/29/2015 16:37:37 Active or passive immunization 407413976 [id number] MD Anabel Spearshalto (Peds) [address] [place] [address] 11/21/2015 10:41:50 11/21/2015 17:47:35 Migraine 44691690 G43.009 Take medication within 10 minutes of ARMAS onset, headache diary. [id number] MD Dejuan Michel ([facility]) [address] [place] [address] 11/28/2017 08:24:34 11/29/2017 10:08:07 Missed period 60609919 N92.5 UPT positive, dwp. Routine an tenatal care 483140952 Z34.01 See ACOG form [id number] MD Anabel Michelhalto ([facility]) [address] [place] [address] 12/12/2017 09:12:33 01/24/2018 11:47:16 Routine care 767047752 Z34.02 See ACOG form Placenta p revia without hemorrhage - not delivered 237337933 O44.02 [id number] MD Anabel Michelhalto ([facility]) [address] [place] [address] 01/09/2018 09:57:59 01/31/2018 12:39:12 Routine care 854590085 Z34.02 See ACOG form [id number] MD Dejuan Michel ([facility]) [address] [place] [address] 02/06/2018 08:12:18 02/06/2018 13:15:46 Routine care 173901656 Z34.02 See ACOG form [id number] MD Anabel Michelhalto ([facility]) [address] [place] [address] 02/13/2018 09:18:02 02/13/2018 15:46:30 Routine care 628111782 Z34.02 See ACOG form [id number] MD Anabel Michelhalto ([facility] [employer]) [address] [place] [address] 02/27/2018 10:04:44 03/06/2018 14:22:13 Routine care 117123532 Z34.03 See ACOG form Candidal vulvovaginitis 90085951 B37.3 Diagnosis d/w pt. Rx sent to pharmacy. [facility] discussed. [id number] MD Dejuan Michel ([employer]) [address] [place] [address] 03/13/2018 09:44:38 03/13/2018 14:00:16 Routine care 345310980 Z34.03 See ACOG form [id number] MD Dejuan Michel ([employer] [employer]) [address] [address] 03/27/2018 09:54:09 04/15/2018 12:30:41 Routine care 564786772 Z34.03 See ACOG form Uterine si ze for dates discrepancy 738682537 O26.849 Size less than dates [id number] MD Anabel Michelhalto ([employer]) [address] [address] 04/10/2018 10:35:46 04/10/2018 15:21:00 Routine care 365715497 Z34.03 See ACOG form [id number] MD Anabel Michelhalto ([employer]) [address] [place] [address] 04/24/2018 10:18:05 04/24/2018 13:54:57 Routine care 765400933 Z34.03 See ACOG form [id number] MD Anabel Michelhalto ([facility] [employer]) [address] [place] [address] 05/01/2018 10:18:50 05/01/2018 12:53:48 Routine care 695736155 Z34.03 See ACOG form [id number] MD Anabel Michelhalto ([employer]) [address] [place] [address] 05/08/2018 10:19:08 05/08/2018 12:10:21 Routine care 980027778 Z34.03 See ACOG form [id number] MD Dejuan Michel ([facility] [employer]) [address] [place] [address] 05/15/2018 10:17:45 05/16/2018 15:50:46 Routine care 291774290 Z34.03 See ACOG form [id number] MD Dejuan Michel ([employer]) [address] [place] [address] 05/22/2018 10:37:49 05/23/2018 09:30:31 Routine care 351550102 Z34.03 See ACOG form [id number] MD Dejuan Michel ([employer]) [address] [place] [address] 06/10/2018 10:22:23 06/12/2018 12:26:57 care 310813005 Z39.2 BV on exam. See below. Breast feeding well. Wants to take the pill. See below. RTO 4 weeks for final ppv. Bacterial vaginosis 4197 69211 N76.0 Diagnosis d/w pt. Rx sent to pharmacy. Instructio ns discussed. Oral contr aceptive prescribed 903945390 Z30.011 Pt. breastfeed ing. Rx sent to pharmacy. Instructio ns discussed. Need to take one month before being protected from discussed. Pt. expressed understand ing and agreement. [id number] MD Dejuan Michel ([facility] [employer]) [address] [place] [address] 07/08/2018 10:13:34 07/09/2018 09:48:09 care 548537599 Z39.2 BV on exam. See below. Breast feeding well. return to all normal activities . Bacterial vaginosis 4197 29964 N76.0 Diagnosis d/w pt. Rx sent to pharmacy. Instructio ns discussed. [id number] MD Dejuan Michel ([employer] [employer]) [address] [place] [address] 11/02/2020 08:13:03 11/03/2020 06:54:09 [place] [id number] N94.0 Diagnosis d/w pt. Option of taking OCPs to decrease pain d/w pt. Pt. states she cannot take OCPs because they make her feel crazy. Pt. to take 600 mg Ibuprofen every 6 hours as needed for pain. [id number] Usman Vazquez MD [place] [address] [place] [address] 02/01/2021 10:58:37 02/02/2021 11:06:03 Routine care 916309138 Z34.82 Depressive disorder 3548 9007 F32.9 Counseled on depression management including establishi ng good sleep hygiene and routine. Pt wanting to Fluoxetine . Pt educated on medication risks including risks in and black box warnings and instructio ns given. Pt notified to call office if issues occur. Counseling referral ordered and pt notified of walk in counseling appointmen t at [facility] in [place], numbers given to pt to set up appointmen t and pt notified to call office if issues with referral. Follow up with counseling and Follow up here in 1 month. Call office if issues occur before then. Counseled on seeking help from 911 or go to ER for suicidal or homicidal thoughts. Pt verbalized understand ing. Vaginal discharge 632932 006 N89.8 Educated patient on vulvar hygiene and use condoms during sex. swab obtained and sent to lab. [id number] MD Carrie Schreiber 14 [address] [facility] [facility] [place] [address] 03/07/2021 11:09:33 03/08/2021 12:13:56 Routine care [id number] Z34.82 Low back p ain in [id number] 106 O26.092 [id number] MD Carrie Schreiber 14 OB [address] [facility] [place] [address] 04/11/2021 11:34:38 04/12/2021 06:51:03 Routine care [id number] Z34.82 [id number] MD Carrie Schreiber 14 OB [address] [facility] [place] [address] 05/15/2021 11:42:40 05/16/2021 07:13:13 Routine care [id number] Z34.93 Administra tion of diphtheria, pertussis, and tetanus vaccine 917352254 Z23 [id number] MD Carrie Schreiber 14 OB [address] [facility] [place] [address] 06/07/2021 10:42:27 06/08/2021 08:04:36 Routine care 076791657 Z34.93 [id number] MD Carrie Schreiber 14 OB [address] [facility] [place] [address] 06/21/2021 10:15:55 06/22/2021 06:50:26 Routine care 914114132 Z34.93 At formerly [facility], [facility] risk of urinary tract infection 348702975 Z91.89 [id number] MD Carrie Schreiber 14 OB [address] [facility] [place] [address] 06/28/2021 10:45:45 06/29/2021 12:36:17 Routine care 787405732 Z34.93 [id number] MD Carrie cShreiber 14 OB [address] [facility] [address] [place] [address] 07/05/2021 11:11:44 07/06/2021 11:51:16 Routine care 267090014 Z34.93 [id number] MD Carrie Schreiber 14 OB [address] [facility] [address] [place] [address] 08/30/2021 11:18:46 09/04/2021 09:04:33 care 517414264 Z39.2 Contraception care 32955 5005 Z30.40 depression 58 832782 F53.0 --declined antidepres mariah and therapy [id number] MD Dejuan Gomez (Adult Med) [address] [place] [address] 12/29/2021 10:49:47 01/01/2022 06:43:16 Adult health examination 897040686 Z00.01 Encouraged routine [employer], vision, dental exams, well balanced diet. Nasal congestion 6851233 0 R09.81 will start with labs and add flonase, ocean spray prn Migraine with aura 18507 06 G43.109 check labsdwp avoiding triggers,w ill trial sumatripta n Generalize d anxiety disorder 92726700 F41.1 dwp coping skills, will start with labs and treating migraines, if worsening to call office [id number] MD Dejuan Gomez (Adult Med) [address] [place] [address] 01/25/2022 16:08:10 01/26/2022 06:47:16 Migraine with aura 2600323 G43.109 dwp avoiding triggers,w ill trial sumatripta n 25 mg, cont prn Hyperlipidemia 13504931 E78.5 cholestero l elevated, would benefit from diet changes and omega 3 fatty acid supplement , avoid fried fatty foods [id number] MD Dejuan Gomez (Adult Med) [address] [place] [address] 08/10/2022 14:15:56 08/14/2022 10:20:27 Hyperlipidemia 93662755 E78.5 cholestero l elevated, would benefit from diet changes and omega 3 fatty acid supplement , avoid fried fatty foods Generalize d anxiety disorder 11934237 F41.1 dwp coping skills, will start with labs and treating migraines, if worsening to call office Migraine with aura 17450 06 G43.109 dwp avoiding triggers,w ill trial sumatripta n 25 mg, cont prn [id number] MD Dejuan Gomez (Adult Med) [address] [place] [address] 12/25/2022 10:33:13 12/25/2022 15:11:06 Borderline abnormal ECG 254947797 R94.31 ER ekg reviewed, will repeat and get echo as well Hyperlipidemia 64396401 E78.5 cholestero l elevated, would benefit from diet changes and omega 3 fatty acid supplement , avoid fried fatty foodsstart ed cholestero l rx-statin but it made her have chest pain, myalgia and sick to her stomach; Generalize d anxiety disorder 27813475 F41.1 dwp coping skills, will start with labs and treating migraines, if worsening to call office Migraine with aura 51471 06 G43.109 dwp avoiding triggers,w ill trial sumatripta n 25 mg, cont prn Pain of right breast 900 4450012 N64.4 intermitte nt pain to right breast that has also expressed cloudy discharge, will order US,stopped breastfeed ing 10 months ago;right axilla with pea sized cyst soft [id number] Usman Vazquez MD [place] 14 OB [address] [facility] [address] [place] [address] 07/01/2023 15:21:13 07/02/2023 10:51:10 Gynecologic examination 41314792 Z01.419 --CBE and pap smear performed Mass of right breast 384 8621022 9016375 N63.10 Pain in pelvis 80359519 R10.2 [id number] MD Dejuan Gomez (Adult Med) [address] [place] [address] 09/03/2023 09:34:43 09/04/2023 15:04:46 Migraine with aura 8084707 G43.109 dwp avoiding triggers,w ill trial sumatripta n 25 mg, cont prn Abdominal pain 91049093 R10.9 recent abd pain, went to ER, notes reviewed, CT normal except for stool Dysuria 75735143 R30.0 urine dip pos leuk, will send for culture and notify pt if abx change needed, will start macrobid; dwp to increase fluids and RTO if increase in pain or fever or other changes occur. Low back pain 576167173 M54.50 lumbar spine ttp, advised naproxen, and will get xray, cont heat/ice [id number] MD Dejuan Gomez (Adult Med) [address] [place] [address] 12/14/2024 11:13:52 12/16/2024 16:15:03 Adult health examination 721707561 Z00.01 Encouraged routine [employer], vision, dental exams, well balanced diet. Migraine with aura 11293 06 G43.109 dwp avoiding triggers,w ill trial sumatripta n 25 mg, cont prn Feeling of lump in throat 171691737 R09.89 none palpable on exam, will get US [id number] Usman Vazquez MD [place] 14 OB [address] [facility] [address] [place] [address] 01/11/2025 10:13:12 01/15/2025 14:55:21 Gynecologic examination 11734790 Z01.419 --CBE and pap smear performed Screening for malignant neoplasm of breast 363339668 Z12.39 Body mass index 20-24 - normal 833909442 Z68.21 [id number] MD Dejuan Gomez (Adult Med) [address] [place] [address] [address] 03/02/2025 11:59:52 03/03/2025 13:36:19 Dysfunction of bilateral eustachian tubes 9366640141 498219 H69.93 clear fluid behind TM, dwp to start inhaled nasal steroid to reduce inflammati onPatient plans to buy OTC-advise d if not improved, please call office Health Concerns Section Related Observation LastModified by Organization Detai ls LastModified Time None Recorded Concern Status LastModified by Organization Details LastModified Time None Recorded Advance Directives Directive N: Payers Insurance Date Sequence Insurance Name Policy Number Policy Camacho Covered Member ID Camacho Member ID Guarantor Name 03/03/2025 1 [facility] [id number] Adina Herndon [id number] Beatris Yanick 03/03/2025 1 [facility] (MEDICAID REPLACEMENT - HMO) [id number] Adina Herndon [id number] Beatris Herndon 03/03/2025 1 [employer] [facility] [place] [facility] 09/06/2020 (MEDICAID REPLACEMENT - HMO) Adina Herndon [id number] Beatris Herndon 03/03/2025 1 [facility] (MEDICAID HMO) [id number] Adina Herndon [id number] Beatris Herndon 09/17/2018 PAYMENT PLAN [facility] Yanick 03/03/2025 1 [facility] (PPO) [id number] Adina Herndon [id number] Beatris Hernodn Notes Date Note Type Note Provider Name and Address Organization Details Recorded Time 07/01/2023 text/html Annual GYNReport ed bypatient.Menstrual cycle:Patient admits to abdominal cramping intermittently most days. She states the pain is not relived or worsened by anything. Urinary symptoms:No hematuria; No incontinence Vulva:No genital lesion Vagina:Normal vaginal discharge Breast:No breast lump; No nipple discharge;Breast pain(Left breast, upper outer quadrant) Current Contraception: control not practiced Sexual complaints:No sexual complaints; No pain during intercourse; Normal libido Menopausal Symptoms:No menopausal symptoms; Normal vaginal lubrication Psychological symptoms:No depression; No anxiety; No PMDD Usman Vazquez MD Attn: Accounting[address] [place], [address], [facility] 07/01/2023 19:59:05 09/03/2023 text/html Abdominal PainReported bypatient.Location:s uprapubic Quality:cramping;dul l;tender Severity:mild Associated Symptoms:no fever; no chills; no blood in the urine; no heartburn; no shortness of breath Other:denies possible pregnancyNotes:lower abdominal pain a week w/ nausea- denies vomiting, constipation, diarrheaBack PainReported bypatient.Location:p ain is not radiating Quality:dull Severity:same Duration:acute Onset/Timing:first episodeNotes:lower back pain for a week- denies shooting pain. otc tylenol, ibuprofen. tried muscle relaxer. Went to ER as well Jane Balderas APN, FNP-C Attn: [address] [place], [address], [facility] 09/03/2023 10:19:46 12/14/2024 text/html Pt. here for una adam. She states she has been having issues w/ throat tightening. Started early Nov. At the beginning it was all the time for a few weeks now it is on and off. DENIES recent illness mother hx of thyroid issues Jane Balderas APN, FNP-C Attn: [address]ing[address] [place], [address], [facility] 12/14/2024 11:43:30 01/11/2025 text/html Annual GYNReport ed bypatient.History:no gynecologic complaints Menstrual cycle:Normal menses Urinary symptoms:No hematuria; No incontinence Vulva:No genital lesion Vagina:Normal vaginal discharge Breast:No breast pain; No breast lump; No nipple discharge Current Contraception: control not practiced Sexual complaints:No sexual complaints; No pain during intercourse; Normal libido Menopausal Symptoms:No menopausal symptoms; Normal vaginal lubrication Psychological symptoms:No depression; No anxiety; No PMDD Usman Vazquez MD Attn: Accounting, [address] [place], [address], [facility] 01/11/2025 11:52:31 03/02/2025 text/html Pt states that s he has felt like her ears are clogged for a long time. Pt does not have any pain, but does notice that she gets migraines a lot. Pt is unsure if it is ear wax or fluid. She says that sometimes she feels popping a lot. Jane Balderas APN, FNP-C Attn: Accounting[address] [facility], [place], [address], [place] [facility] 03/02/2025 15:53:40 OBGyn Episode Ob Episode Information Episode Created Date Number of Fetuses Patient Bloodtype Patient rh Status Prepregnancy Weight lbs Domestic Partner Domestic Partner Phone Father Name Dinkey Mechanic Status 02/02/20 21 1 A Positive CLOSED Fetus Data First Name Last Name Admitted to NICU Weight (g) Sex Living Outcome Pediatric Complications Fetus ID Race Codes Race Delivery Type Lanette Alejandro false 1754.85 54315 F true Full Term 58781 2106-3 White Vaginal Problems Problem Notes Problem Name Start Date End Date Resolution Snomed Code Not e Late entry into care [id number] pt educated on importance of care. Depressive disorder [id number] 03/07/21: pt declined medication and counseling and reports depression resolved. PT notified to let us know if issues occur and educated on warning signs02/01/21:Counse led on depression management including establishing good sleep hygiene and routine. Pt wanting to Fluoxetine. Pt educated on medication risks including risks in and black box warnings and instructions given. Pt notified to call office if issues occur. Counseling referral ordered and pt notified of walk in counseling appointment at [facility] in [place], numbers given to pt to set up appointment and pt notified to call office if issues with referral. Follow up with counseling and Follow up here in 1 month. Call office if issues occur before then. Counseled on seeking help from 911 or go to ER for suicidal or homicidal thoughts. Pt verbalized understanding. Low back pain in [id number] Pt educated on management and use of maternity belt and exercise and stretching. Pt educated on body mechanics. Recommended PT referral. Pt declined. Pt educated on warning signs and notified to call call office if issues occur. Administration of diphtheria, pertussis, and tetanus vaccine 05/15/2021 [id number] Anemia of 06710454 Pt educated on importance of treatment. Pt educated on iron supplement with colace and diet changes. Repeat labs at 28 weeks. Hayley Calculation Initial Hayley Date Initial Exam Date Initial Exam Provider Initial Ultrasound Date Last Menstrual Period Date Ultra Sound Weeks Gestation 09/02/2021 01/12/2021 deion 01/12/2021 10/07/2020 13 Eighteen To Twenty Week Hayley Update Ultra Sound Date Fundal Height At Umbil Quickening Date Ultra Sound Latest Weeks Gestation Final Hayley Confirmed By Final Hayley Confirmed Date Final Hayley Date Ultra Sound Latest Days Gestation 02/29/20 21 19 [email or web address] 02/01/2021 07/15/20 21 6 Pre-alessandro Flowsheet Flowsheet Date 02/01/2021 Go Score Blood Edema Fundus Height Fundus Units Glucose Ketones Leukocytes Nitrite Labor Signs Protein Cervic Dilation Cervic Effacement Cervic Station neg none 16 wks none negative none neg Type Weight in lbs Pre/Post Dialysis Refused With clothes 114.480732302165 BP Diastolic BP Location Tested BP Systolic BP Type 56 100 sitting Fetus Heart Rate Present A 155 Present Fetus Movement Comments Pt here for new OB appointme nt. Pt unsure of Last menstrual period. Pt reports she had period in the beginning of October 2020 and then had spotting for 4 days sometime at the end of November. Pt reports history of irregular menses. Pt reports had positive at home in January and went to [facility] [place] [facility]. Pt brought copy US report on her phone that showed she had US completed at [facility] in [place] on 01/12/2021 and was 13 weeks and 5 days at that time with HAYLEY of 07/15/2021. Release of records faxed to clinic for offical report. Pt EPDS 21. Pt denies any SI or HI. Pt reports she has been having some depression issues but has good support system. Pt denies any intimate partner violence. Pt denies any other major life stressor but reports this was unplanned but states she happy about the . Discussed management. pt decided on zoloft and counseling referral. Pt denies any other complaints. Pt educated on care and labs. Anatomy US ordered for patient to complete in 2-3 weeks. Pt notified to RTC in 4 weeks and call office if issues occur. Pt educated on warning signs and given Er precautions. Flowsheet Date 03/07/2021 Go Score Blood Edema Fundus Height Fundus Units Glucose Ketones Leukocytes Nitrite Labor Signs Protein Cervic Dilation Cervic Effacement Cervic Station neg none none negative neg Type Weight in lbs Pre/Post Dialysis Refused Weight 117.376226502718 BP Diastolic BP Location Tested BP Systolic BP Type 64 104 sitting Fetus Heart Rate Present A 142 Present Fetus Movement A Yes Comments Pt is here for ob appt. PT w as started on zoloft at last visit but decided not to take. Pt declined counseling as well. Pt reports doing well and denies issues with depression at this time. Pt reports good support system. Pt has complaint of occasional low back pain in . Pt reports relieved with stretching and massage. Pt denies any vaginal bleeding. Pt reports movement. PT denies any pelvic pain. Pt denies any contractions. Pt denies any other complaints. Pt reports she is doing well. Anatomy US normal. Quad screening negative. Pt reports taking ferrous sulfate and colace as prescribed. Pt educated on warning signs and notified when to go to L and D. RTC in 4 weeks and call office if issues occur. Flowsheet Date 04/11/2021 Go Score Blood Edema Fundus Height Fundus Units Glucose Ketones Leukocytes Nitrite Labor Signs Protein Cervic Dilation Cervic Effacement Cervic Station neg none 26 cm none negative none neg Type Weight in lbs Pre/Post Dialysis Refused With clothes 125.050562458585 BP Diastolic BP Location Tested BP Systolic BP Type 70 106 sitting Fetus Heart Rate Present A 145 Present Fetus Movement A Yes Comments Pt is here for routine OB ap pointment. PT denies any complaints. PT reports doing well. Pt educated on labs today and labs completed. Pt educated on warning signs and notified when to go to L and D. RTC in 4 weeks and call office if issues occur. Flowsheet Date 05/15/2021 Go Score Blood Edema Fundus Height Fundus Units Glucose Ketones Leukocytes Nitrite Labor Signs Protein Cervic Dilation Cervic Effacement Cervic Station neg none 28 cm none negative none neg Type Weight in lbs Pre/Post Dialysis Refused BP Diastolic BP Location Tested BP Systolic BP Type Fetus Heart Rate Present A 130's Present Fetus Movement A Yes Comments Patient denies any complaint s. She admits to FM, denies VB, LOF and CTXs. labor precautions given. RTC in 3 weeks. Flowsheet Date 06/07/2021 Go Score Blood Edema Fundus Height Fundus Units Glucose Ketones Leukocytes Nitrite Labor Signs Protein Cervic Dilation Cervic Effacement Cervic Station neg none 32 cm none negative none neg Type Weight in lbs Pre/Post Dialysis Refused With clothes 133.882468174822 BP Diastolic BP Location Tested BP Systolic BP Type 58 96 sitting Fetus Heart Rate Present A 130's Present Fetus Movement A Yes Comments Patient denies any complaint s. She admits to FM, denies VB, LOF, CTXs. labor precautions given. RTC in 1 week. Flowsheet Date 06/21/2021 Go Score Blood Edema Fundus Height Fundus Units Glucose Ketones Leukocytes Nitrite Labor Signs Protein Cervic Dilation Cervic Effacement Cervic Station neg none 35 cm none negative none neg Type Weight in lbs Pre/Post Dialysis Refused With clothes 134.486634270462 BP Diastolic BP Location Tested BP Systolic BP Type 68 102 sitting Fetus Heart Rate Present A 130's Present Fetus Movement A Yes Comments Patient denies any complaint s. She admits to FM, denies VB, LOF and CTXs. GBS and STD testing today. labor precautions given. RTC in 1 week. Flowsheet Date 06/28/2021 Go Score Blood Edema Fundus Height Fundus Units Glucose Ketones Leukocytes Nitrite Labor Signs Protein Cervic Dilation Cervic Effacement Cervic Station neg none 36 cm none negative none trace Type Weight in lbs Pre/Post Dialysis Refused With clothes 135.261977929794 BP Diastolic BP Location Tested BP Systolic BP Type 72 106 sitting Fetus Heart Rate Present A 140's Present Fetus Movement A Yes Comments Patient denies any complaint s. She admits to FM, denies VB, LOF and CTXs. Labor precautions given. RTC in 1 week. Flowsheet Date 07/05/2021 Go Score Blood Edema Fundus Height Fundus Units Glucose Ketones Leukocytes Nitrite Labor Signs Protein Cervic Dilation Cervic Effacement Cervic Station neg none 37 cm none negative none neg 0cm Type Weight in lbs Pre/Post Dialysis Refused With clothes 137.378741018933 BP Diastolic BP Location Tested BP Systolic BP Type 78 118 sitting Fetus Heart Rate Present A 130's Present Fetus Movement A Yes Comments Patient denies any complaint s. She admits to , denies VB, LOF and CTXs. Patient desires elective IOL, scheduled for Saturday07/10/21 at 2000. Labor precautions given. Flowsheet Date 08/30/2021 Go Score Blood Edema Fundus Height Fundus Units Glucose Ketones Leukocytes Nitrite Labor Signs Protein Cervic Dilation Cervic Effacement Cervic Station Type Weight in lbs Pre/Post Dialysis Refused Weight 116.255072310360 BP Diastolic BP Location Tested BP Systolic BP Type 64 L arm 112 sitting Fetus Heart Rate Present Fetus Movement Comments Menstrual History Last Menstrual Date Menses Monthly On Bcp Conception Prior Menses Frequency Hcg Plus Date Menarche Onset Age 0110/07/2020 false Genetic Screening And Infection History Question Response Note Patient's Age Will Be 35 Years Or Older At Estim ated Date of Delivery false Thalassemia (Cape Verdean, Korean, Mediterranean, Or Background): MCV < 80 false Neural Tube Defect (Meningomyelocele, Spina Bifi da, Or Anencephaly) false Congenital Heart Defect false Down Syndrome false Huber-Sachs (eg, Spiritism, Cajun, Somali-Dyer) f alse Joey Disease false Sickle Cell Disease Or Trait () false Hemophilia Or Other Blood Disorders false Muscular Dystrophy false Cystic Fibrosis false Adair's Chorea false Mental Retardation/Autism false If Yes, Was Person Tested For Fragile X? false Other Inherited Genetic Or Chromosomal Disorder false Maternal Metabolic Disorder (eg, Type 1 Diabetes , PKU) false Patient Or Baby's Father Had A Child With Defects Not Listed Above false Recurrent Loss, Or A Stillbirth false Medications (including Suppl ements, Vitamins, Herbs, OTC Drugs), Illicit/Recreational Drugs, Alcohol true pnv If Yes, Agent(s) And Strength/Dosage false Any Other Genetic History false Live With Someone With TB Or Exposed To TB false Patient Or Partner Has History Of Genital Herpes false Rash Or Viral Illness Since Last Menstrual Perio d false History Of STD, Gonorrhea, Chlamydia, HPV, Syphi lis false Other Infection History false History of HIV false History of Hepatitis false Prior GBS-infected child false Plans and Education First Trimester Discussed Date Discussion Item Discussion Note Discuss ed By 02/01/2021 Anticipated course of care fernstrn 02/01/2021 Alcohol fernstrn 02/01/2021 Intimate partner violence fe rnstrn 02/01/2021 Environmental/work hazards f ernstrn 02/01/2021 Screening for aneuploidy fausto nstrn 02/01/2021 Nutrition counseling ; special diet; dietary precautions (mercury, listeriosis) fernstrn 02/01/2021 Childbirth classes/hospital facilities fernstrn 02/01/2021 HIV and other routine tests fernstrn 02/01/2021 Risk factors identif ied by history fernstrn 02/01/2021 Weight gain counseling ferns trn 02/01/2021 Exercise fernstrn 02/01/2021 Teratogens fernstrn 02/01/2021 Use of any medicatio ns (including supplements, vitamins, herbs, or OTC drugs) fernstrn 02/01/2021 fernstrn 02/01/2021 Sexual activity fernstrn 02/01/2021 Tobacco/smoking cess ation counseling (ask, advise, assess, assist, and arrange) fernstrn 02/01/2021 Illicit/recreational drugs f ernstrn 02/01/2021 Dental care fernstrn 02/01/2021 Travel fernstrn 02/01/2021 Seat belt use fernstrn 02/01/2021 Indications for ultrasonography fernstrn 02/01/2021 Avoidance of saunas or hot tubs fernstrn 02/01/2021 Toxoplasmosis precautions (cats/raw meat) fernstrn Second Trimester Discussed Date Discussion Item Discussion Note Discuss ed By 02/01/2021 Selecting a care provider fernstrn 02/01/[address] anning/tubal sterilization fernstrn 02/01/2021 Depression screening (when indicated) fernstrn 02/01/2021 Abnormal lab values fernstrn 02/01/2021 Signs and symptoms of labor fernstrn 02/01/2021 Intimate partner violence fe rnstrn 02/01/2021 Tobacco/smoking cess ation counseling (ask, advise, assess, assist, and arrange) fernstrn Third Trimester Discussed Date Discussion Item Discussion Note Discuss ed By 04/11/2021 movement monitoring fe rnstrn 04/11/2021 Labor signs fernstrn 04/11/2021 Signs and symptoms of preeclampsia fernstrn Delivery Information Delivery Date Delivery Type Labor Anesthesia Weeks Gestation Incision Type Labor Labor Length Hrs Delivered By Post Complications Tubal Sterilization Discharge Date Comments Induce d Regional-Ep idural 39.3 Usman Cao MD None 07/13/2021 Discharge Information Feeding Method Contraceptive Method Maternal HG B and HCT Levels Breast .4 Ob Episode Information Episode Created Date Number of Fetuses Patient Bloodtype Patient rh Status Prepregnancy Weight lbs Domestic Partner Domestic Partner Phone Father Name Dinkey Mechanic Status 11/28/19 18 1 A Positive Dereck hinds CLOSED Fetus Data First Name Last Name Admitted to NICU Weight (g) Sex Living Outcome Pediatric Complications Fetus ID Race Codes Race Delivery Type Susie Boucher false 3033.39 65 M true Full Term 92334 2106-3 White Vaginal Hayley Calculation Initial Hayley Date Initial Exam Date Initial Exam Provider Initial Ultrasound Date Last Menstrual Period Date Ultra Sound Weeks Gestation 05/19/2018 11/28/2017 [email or web address] 12/11/2017 08/12/2017 16 Eighteen To Twenty Week Hayley Update Ultra Sound Date Fundal Height At Umbil Quickening Date Ultra Sound Latest Weeks Gestation Final Hayley Confirmed By Final Hayley Confirmed Date Final Hayley Date Ultra Sound Latest Days Gestation 12/12/19 18 16 [email or web address] 02/06/2018 05/19/20 18 6 Pre-alessandro Flowsheet Flowsheet Date 11/28/2017 Go Score Blood Edema Fundus Height Fundus Units Glucose Ketones Leukocytes Nitrite Labor Signs Protein Cervic Dilation Cervic Effacement Cervic Station Type Weight in lbs Pre/Post Dialysis Refused 110.178062527827 BP Diastolic BP Location Tested BP Systolic BP Type 78 118 sitting Fetus Heart Rate Present A 145 Present Fetus Movement Comments folder given. Pren atal labs plus toxo titers ordered. Rx PNVs sent. Dating US ordered. RTO 2 weeks for NOB visit. Flowsheet Date 12/12/2017 Go Score Blood Edema Fundus Height Fundus Units Glucose Ketones Leukocytes Nitrite Labor Signs Protein Cervic Dilation Cervic Effacement Cervic Station none neg Type Weight in lbs Pre/Post Dialysis Refused 110.144961219506 BP Diastolic BP Location Tested BP Systolic BP Type 60 112 sitting Fetus Heart Rate Present A 140 Present Fetus Movement Comments labs wnl, dwp. Quad screen discussed, ordered. Had dating US yesterday. Showed placenta previa. Pelvic rest d/w pt Will recheck US in one month, dwp. RTO 4 weeks Flowsheet Date 01/09/2018 Go Score Blood Edema Fundus Height Fundus Units Glucose Ketones Leukocytes Nitrite Labor Signs Protein Cervic Dilation Cervic Effacement Cervic Station none neg Type Weight in lbs Pre/Post Dialysis Refused 115.245206927266 BP Diastolic BP Location Tested BP Systolic BP Type 58 104 sitting Fetus Heart Rate Present A 140 Present Fetus Movement A Yes Comments Quad screen negative, dwp. U S showed placenta previa resolved, dwp. May discontinue pelvic rest, dwp. RTO 4 weeks. Third trimester labs next visit, dwp. Flowsheet Date 02/06/2018 Go Score Blood Edema Fundus Height Fundus Units Glucose Ketones Leukocytes Nitrite Labor Signs Protein Cervic Dilation Cervic Effacement Cervic Station 24 cm Type Weight in lbs Pre/Post Dialysis Refused 117.383242789221 BP Diastolic BP Location Tested BP Systolic BP Type 62 100 sitting Fetus Heart Rate Present A 140 Present Fetus Movement A Yes Comments Third trimester labs today. PT labor prec. discussed. RTO 2 weeks. Flowsheet Date 02/13/2018 Go Score Blood Edema Fundus Height Fundus Units Glucose Ketones Leukocytes Nitrite Labor Signs Protein Cervic Dilation Cervic Effacement Cervic Station 25 cm none neg Type Weight in lbs Pre/Post Dialysis Refused 116.735199350366 BP Diastolic BP Location Tested BP Systolic BP Type 76 110 sitting Fetus Heart Rate Present A 150 Present Fetus Movement A Yes Comments Third trimester labs wnl, dw p. PT labor prec. discussed. RTO 2 weeks. Flowsheet Date 02/27/2018 Go Score Blood Edema Fundus Height Fundus Units Glucose Ketones Leukocytes Nitrite Labor Signs Protein Cervic Dilation Cervic Effacement Cervic Station 27 cm none neg Type Weight in lbs Pre/Post Dialysis Refused 119.672491731346 BP Diastolic BP Location Tested BP Systolic BP Type 60 100 sitting Fetus Heart Rate Present A 140 Present Fetus Movement A Yes Comments TdaP discussed, given. Pt. w ith yeast infection. Rx Terazol sent. PT labor prec/kick counts discussed. RTO 2 weeks. Flowsheet Date 03/13/2018 Go Score Blood Edema Fundus Height Fundus Units Glucose Ketones Leukocytes Nitrite Labor Signs Protein Cervic Dilation Cervic Effacement Cervic Station 27 cm none neg Type Weight in lbs Pre/Post Dialysis Refused 122.720233957180 BP Diastolic BP Location Tested BP Systolic BP Type 64 100 sitting Fetus Heart Rate Present A 140 Present Fetus Movement A Yes Comments PT labor prec/kick counts di scussed. RTO 2 weeks. Flowsheet Date 03/27/2018 Go Score Blood Edema Fundus Height Fundus Units Glucose Ketones Leukocytes Nitrite Labor Signs Protein Cervic Dilation Cervic Effacement Cervic Station 28 cm none neg Type Weight in lbs Pre/Post Dialysis Refused 124.592997968619 BP Diastolic BP Location Tested BP Systolic BP Type 62 110 sitting Fetus Heart Rate Present A 135 Present Fetus Movement A Yes Comments Size less than dates. US ord ered. PT labor prec/kick counts discussed. RTO 2 weeks. Flowsheet Date 04/10/2018 Go Score Blood Edema Fundus Height Fundus Units Glucose Ketones Leukocytes Nitrite Labor Signs Protein Cervic Dilation Cervic Effacement Cervic Station 30 cm none neg Type Weight in lbs Pre/Post Dialysis Refused 128.802154317133 BP Diastolic BP Location Tested BP Systolic BP Type 64 110 sitting Fetus Heart Rate Present A 130 Present Fetus Movement A Yes Comments US shows fetus at 19 th %ile , dwp. PT labor prec/kick counts discussed. RTO 2 weeks. GBS next visit. Flowsheet Date 04/24/2018 Go Score Blood Edema Fundus Height Fundus Units Glucose Ketones Leukocytes Nitrite Labor Signs Protein Cervic Dilation Cervic Effacement Cervic Station 32 cm none trace 0cm Type Weight in lbs Pre/Post Dialysis Refused 128.944043093192 BP Diastolic BP Location Tested BP Systolic BP Type 70 116 sitting Fetus Heart Rate Present A 145 Present Fetus Movement A Yes Comments GBS done today. Labor prec/k ick counts discussed. RTO one week. Flowsheet Date 05/01/2018 Go Score Blood Edema Fundus Height Fundus Units Glucose Ketones Leukocytes Nitrite Labor Signs Protein Cervic Dilation Cervic Effacement Cervic Station 34 cm none neg Type Weight in lbs Pre/Post Dialysis Refused 129.117567563569 BP Diastolic BP Location Tested BP Systolic BP Type 70 114 sitting Fetus Heart Rate Present A 150 Present Fetus Movement A Yes Comments Labor prec/kick counts discu ssed. RTO one week. Flowsheet Date 05/08/2018 Go Score Blood Edema Fundus Height Fundus Units Glucose Ketones Leukocytes Nitrite Labor Signs Protein Cervic Dilation Cervic Effacement Cervic Station 36 cm none neg 0cm Type Weight in lbs Pre/Post Dialysis Refused 132.697009508915 BP Diastolic BP Location Tested BP Systolic BP Type 64 118 sitting Fetus Heart Rate Present A 140 Present Fetus Movement A Yes Comments GBS positive, dwp. Labor pre c/kick counts discussed. RTO one week. Flowsheet Date 05/15/2018 Go Score Blood Edema Fundus Height Fundus Units Glucose Ketones Leukocytes Nitrite Labor Signs Protein Cervic Dilation Cervic Effacement Cervic Station 36 cm none neg 0cm Type Weight in lbs Pre/Post Dialysis Refused 130.12492467654 BP Diastolic BP Location Tested BP Systolic BP Type 70 116 sitting Fetus Heart Rate Present A 130 Present Fetus Movement A Yes Comments Labor prec/kick counts discu ssed. RTO one week. Flowsheet Date 05/22/2018 Go Score Blood Edema Fundus Height Fundus Units Glucose Ketones Leukocytes Nitrite Labor Signs Protein Cervic Dilation Cervic Effacement Cervic Station 37 cm none neg 1cm Type Weight in lbs Pre/Post Dialysis Refused 131.826356514257 BP Diastolic BP Location Tested BP Systolic BP Type 76 120 sitting Fetus Heart Rate Present A 135 Present Fetus Movement A Yes Comments Labor prec/kick counts discu ssed. IOL scheduled for 05/26/18 @ 2000, dwp. Expectations discussed. Flowsheet Date 06/10/2018 Go Score Blood Edema Fundus Height Fundus Units Glucose Ketones Leukocytes Nitrite Labor Signs Protein Cervic Dilation Cervic Effacement Cervic Station Type Weight in lbs Pre/Post Dialysis Refused 113.318964601851 BP Diastolic BP Location Tested BP Systolic BP Type 80 L arm 108 sitting Fetus Heart Rate Present Fetus Movement Comments Menstrual History Last Menstrual Date Menses Monthly On Bcp Conception Prior Menses Frequency Hcg Plus Date Menarche Onset Age 1108/12/2017 false 6 8 12 Genetic Screening And Infection History Question Response Note Patient's Age Will Be 35 Yea rs Or Older At Estimated Date of Delivery false Thalassemia (Cape Verdean, Korean, Mediterranean, Or Background): MCV < 80 false Neural Tube Defect (Meningomyelocele, Spina Bifi da, Or Anencephaly) false Congenital Heart Defect false Down Syndrome false Huber-Sachs (eg, Spiritism, Cajun, Somali-Dyer) f alse Joey Disease false Sickle Cell Disease Or Trait () false Hemophilia Or Other Blood Disorders false Muscular Dystrophy false Cystic Fibrosis false Brickeys's Chorea false Mental Retardation/Autism false Other Inherited Genetic Or Chromosomal Disorder false Maternal Metabolic Disorder (eg, Type 1 Diabetes , PKU) false Patient Or Baby's Father Had A Child With Defects Not Listed Above false Recurrent Loss, Or A Stillbirth false Medications (including Suppl ements, Vitamins, Herbs, OTC Drugs), Illicit/Recreational Drugs, Alcohol true If Yes, Agent(s) And Strength/Dosage true Any Other Genetic History false Live With Someone With TB Or Exposed To TB false Patient Or Partner Has History Of Genital Herpes false Rash Or Viral Illness Since Last Menstrual Perio d false History Of STD, Gonorrhea, Chlamydia, HPV, Syphi lis false Other Infection History false Delivery Information Delivery Date Delivery Type Labor Anesthesia Weeks Gestation Incision Type Labor Labor Length Hrs Delivered By Post Complications Tubal Sterilization Discharge Date Comments 8 Sponta neous [facility] id[facility] 40[address] Usman Vazquez false 05/27/2018 Discharge Information Feeding Method Contraceptive Method Maternal HG B and HCT Levels Breast
--- OUTSIDE RECORDS SUMMARY | 2025-04-25 12:31 | XMS_ITS | Referral Summary ---
Author Organization [facility] [address] Address [address] [place] [address] Phone Care Team Providers Care Yarn Examiner Skeins Name Role Phone Jane Isabel NP Primary Care Provider + [phone] Usman Vazquez MD Unavailable + [phone] Allergies No known active allergies Medications PNV 16-iron fum,ps-folic-om eg3 35-1-200 mg capsule Take 1 tablet by mouth daily. Active docusate sodium (COLACE) 100 mg capsuleIndicati ons:constipatio n,Stool Softener Take 1 capsule (100 mg total) by mouth 2 (two) times a day as needed for constipation 30 capsule 1 1 Active Additional Information Patient not taking.Reported on 07/30/2023 SUMAtriptan (IMITREX) 25 mg tablet Take 1 tablet (25 mg total) by mouth daily 3 Active Active Problems Problem Noted Date Diagnosed Date Mass of right breast 08/03/2023 Breast pain, right 08/03/2023 Encounter for induction of labor 07/12/2021 Social History Tobacco Use Types Packs/Day Years Used Date Smoking Tobacco: Never Smokeless Tobacco: Never Tobacco Cessation:Counseling Given: Not Answered Alcohol Use Standard Drinks/Week Comments No 0 (1 standard drink = 0.6 oz pur e alcohol) AUDIT-C Answer Date Recorded Q1: How often do you have a drink containing alc ohol? Never 07/10/2021 Average Number of Drinks Not on file 021 Frequency of Binge Drinking Not on file 01/2021 Personal Safety Answer Date Recorded Have you ever been in or are you currently in a harmful physical or emotional relationship or is someone making you feel afraid or unsafe? Denies 08/29/2023 Comments No Sex and Gender Information Value Date Recorded Sex Assigned at Not on file Legal Sex Female 2:52 PM VP PROJECT Gender Identity Not on file Sexual Orientation Not on file Last Filed Vital Signs Vital Sign Reading Time Taken Comments Blood Pressure 110/77 08/29/2023 11:30 PM VP PROJECT Pulse 69 08/29/2023 11:30 PM VP PROJECT Temperature 36.7 C (98.1 F) 08/29/2023 5:41 PM VP PROJECT Respiratory Rate 16 08/29/2023 11:30 PM VP PROJECT Oxygen Saturation 99% 08/29/2023 11:30 PM VP PROJECT Inhaled Oxygen Concentration - - Weight 47.6 kg (105 lb) 08/29/2023 5:41 PM VP PROJECT Height 152.4 cm (5') 08/29/2023 5:41 PM VP PROJECT Body Mass Index 20.51 08/29/2023 5:41 PM VP PROJECT Plan of Treatment Not on file Insurance [facility] [place] [address] [facility] Advance Directives For more information, please contact: [phone] * Full Code (Latest Code Status on File) Date Activated Date Inactivated Comments 07/11/2021 8:56 PM 07/13/2021 2:57 PM * Full Code Date Activated Date Inactivated Comments 07/10/2021 8:07 PM 07/11/2021 8:56 PM Full CPR in case of cardiopulmonary arrest * Full Code Date Activated Date Inactivated Comments 05/25/2018 2:14 PM 05/27/2018 1:56 PM * Full Code Date Activated Date Inactivated Comments 05/25/2018 1:14 AM 05/25/2018 2:14 PM Full CPR in case of cardiopulmonary arrest Care Teams Yarn Examiner Skeins Relationship Specialty Start Date End Date Jane Isabel NP [address] [place] [address] PCP - General Nurse Practitioner 12/25/22 Usman Vazquez MD [address] [facility] [address] [address] Animal Care Attendant Obstetrics and Gynecology 07/02/23
--- OUTSIDE RECORDS SUMMARY | 2025-04-25 12:31 | XMS_ITS | Clinical Summary ---
Author Organization [facility] [address] Address [address] [place] [address] Phone Care Team Providers Care Director Of Distance Learning Name Role Phone Jane Isabel NP Primary Care Provider + [phone] Usman Vazquez MD Unavailable + [phone] Allergies No known active allergies Medications PNV [...] 08/03/2023 Encounter for induction of labor 07/12/2021 Medical History Medical History Date Comments Depression was on medicatio n when 16 years old Varicella when 5 years old Family History Medical History Relation Name Comments Leukemia Paternal Grandmother Relation Name Status Comments Paternal Grandmother Social History Tobacco Use Types Packs/Day Years [...] on file Legal Sex Female 2:52 PM PRODUCTION OPERATIONS ENGINEER Gender Identity Not on file Sexual Orientation Not on file Obstetrics History Para Term AB IAB SAB Ectopic Multiple Livin g Live Births 2 2 2 0 2 2 Date Outcome GA Total Labor Labor/2nd/3rd Weight Sex Type Anes PTL Elvia A1 A5 Name Clin 2017 Term 40w 6d 6h 50m 4h 10m/2h 34m/0h 06m 3.039 kg (6 lb 11.2 oz) M Vag-S pont Epidur al,Loc al N Livin g 9 9 BAUBL THELMA,B OYHEA THER Usman Burgos MD Delivery Location:[facility] ([facility]) 2020 Term 39w 3d 1h 40m 1h 04m/0h 31m/0h 05m 3.116 kg (6 lb 13.9 oz) F Vag-S pont Epidur al N Livin g 8 9 BAUBL THELMA,G IRLHE ATHER Usman Burgos MD Complications:None Delivery Location:[facility] ([facility]) Last Filed Vital Signs Vital Sign Reading Time Taken Comments Blood Pressure 110/77 08/29/2023 11:30 PM PRODUCTION OPERATIONS ENGINEER Pulse 69 08/29/2023 11:30 PM PRODUCTION OPERATIONS ENGINEER Temperature 36.7 C (98.1 F) 08/29/2023 5:41 PM PRODUCTION OPERATIONS ENGINEER Respiratory Rate 16 08/29/2023 11:30 PM PRODUCTION OPERATIONS ENGINEER Oxygen Saturation 99% 08/29/2023 11:30 PM PRODUCTION OPERATIONS ENGINEER Inhaled Oxygen Concentration - - Weight 47.6 kg (105 lb) 08/29/2023 5:41 PM PRODUCTION OPERATIONS ENGINEER Height 152.4 cm (5') 08/29/2023 5:41 PM PRODUCTION OPERATIONS ENGINEER Body Mass Index 20.51 08/29/2023 5:41 PM PRODUCTION OPERATIONS ENGINEER Plan of Treatment Health Maintenance Due Date Last Done Comments Cervical Cancer Screening 1997 Depression Screening 1997 Hepatitis C Screening 1997 Regular Well Visit/Exam 18-64 2015 Influenza Vaccine (Season Ended) 2025 DTaP/Tdap/Td Vaccine (8 - Td or Tdap) 05/16/2031 05/16/2021, 02/27/2018, 02/10/2009, Additional history exists HPV Vaccines Completed 03/19/2012, 01/05, 02/10/2009 Hepatitis B Screening Completed 07/17/2013 , 04/04/1998, 02/01/1998, Additional history exists Pneumococcal vaccine <65 Aged Out No longer eligible based on patient's age to complete this topic Insurance [facility] Advance Directives For more information, please contact: [phone] * Full Code (Latest Code Status on [...] in case of cardiopulmonary arrest Care Teams Director Of Distance Learning Relationship Specialty Start Date End Date Jane Isabel NP [address] [place] [address] PCP - General Nurse Practitioner 12/25/22 Usman Vazquez MD [address] [facility] [address] [facility] [address] [place] [address] Parimutuel Clerk Obstetrics and Gynecology 07/02/23
[2025-04-25 12:33] VITALS: BP 115/77; PULSE 80; RESP 18; TEMP 36.6; O2SAT 99
--- OUTSIDE RECORDS SUMMARY | 2025-04-25 12:35 | XMS_ITS | Continuity of Care Document ---
Author Organization [facility] Address [address] [place] [address] Phone Care Team Providers Care Heating Worker Name Role Phone Unavailable Unavailable Unavailable Allergies, [...] Encounter [facility], [address], [place], [place], [id number] , [place] tel:[phone] [facility] No Information 7 No Information OFFICE OUTPT NEW 60 MIN [facility], [address], [place], [place], [id number] , [place] tel: [phone] [facility] BC consult (chief complaint) Encounter for other general counseling and advice on contraceptionExces sive bleeding in the premenopausal periodEncntr for fermenter exam (general) (routine) w abnormal findings 1-201 7 No Information Family History Family Member Type Diagnosis Age At Onset Problem (finding) No family history of Ca ncer, ovarian Problem (finding) No family history of Ca ncer, colon Problem (finding) No family history of Ca ncer, breast Payers Payer name Insurance type Covered constitution party ID Authoriza tion(s) No Information Social [...]
--- NOTE | 2025-04-25 12:41 | ED.URI ---
HPI - URI/Sore Throat General Chief Complaint: Upper Respiratory Infection Stated Complaint: Cold Symptoms Time Seen by Provider: 04/25/25 12:41 Source: patient and RN notes reviewed Mode of arrival: ambulatory Limitations: no limitations History of Present Illness HPI Narrative: 29-year-old female presented for complaint of sinus congestion drainage, and headache. Onset 10 days. Denies n/v/d/f/c. Taking ibuprofen, dayquil, mucinex, and allergy medicine. MD elicited complaint: cough Related Data Allergies Allergy/AdvReac Type Severity Reaction Status Date / Time No Known Allergies Allergy Verified 04/25/25 12:38 Review of Systems Review of Systems: CONSTITUTIONAL:reports malaise, body aches, chills, sweats, fever EYES: Denies visual changes, redness, or discharge ENT: Reports rhinorrhea, congestion, sinus pain, otalgia, sore throat CARDIOVASCULAR: Denies chest pain, palpitations, edema RESPIRATORY: Reports cough, post nasal drainage. Denies dyspnea GASTROINTESTINAL: Denies abdominal pain, nausea, vomiting, diarrhea SKIN: Denies rash or itching NEUROLOGIC: Denies headache Exam Narrative: GENERAL: well-appearing, nontoxic no acute distress. EYES: conjunctivae clear ENT: Mucous membranes moist. TMs pearly marie with dull light reflex bilaterally; no tragal tenderness. Oropharynx not erythematous without lesions or exudate, no drooling, no hoarseness, no trismus, uvula midline. No tripod positioning, muffled voice, soft palate or pharyngeal wall bulging NECK: Supple. No lymphadenopathy CHEST: Clear to auscultation, breath sounds equal. HEART: Regular rate and rhythm. No murmur heard. SKIN: Warm, dry, no rash. NEURO: Alert and oriented x3. Course Course Emergency Course: Patient is aware of diagnosis, understands and agrees to treatment plan. Anticipatory guidance given. Patient agrees to follow-up as directed and is aware of reasons to seek care at the emergency department. Portions of this record may have been created with voice recognition software Level of Care: Express Care Visit Vital Signs Vital signs: Vital Signs Temperature 98 F 04/25/25 12:33 Pulse Rate 80 04/25/25 12:33 Respiratory Rate 18 04/25/25 12:33 Blood Pressure 115/77 04/25/25 12:33 Pulse Oximetry 99 04/25/25 12:33 Oxygen Delivery Room Air 04/25/25 12:33 Temperature 98 F 04/25/25 12:33 Pulse Rate 80 04/25/25 12:33 Respiratory Rate 18 04/25/25 12:33 Blood Pressure 115/77 04/25/25 12:33 Pulse Oximetry 99 04/25/25 12:33 Oxygen Delivery Room Air 04/25/25 12:33 reviewed MDM - URI/Sore Throat MDM Narrative Medical decision making narrative: Discussed physical exam findingsConsistent with sinusitis. Reviewed antibiotic with patient. Advised supportive measures and signs/symptoms to go to the ER. Pt is appropriate for outpt treatment and f/u. Differential Diagnosis Differential diagnosis: Likely upper respiratory infection, sinusitis and viral infection Discharge Plan Discharge Clinical Impression: Sinusitis Patient Disposition: Home Condition: Stable Instructions: Antibiotic Form, Sinusitis (ED) Additional Instructions: take antibiotic as directed Recommend Flonase spray and Zyrtec (or Claritin/Zuly) over the counter Cough syrup may cause drowsiness; avoid driving or take it at night time. Tylenol 1000mg every 8 hours as needed for pain Symptomatic treatment includes: rest, fluids, and increase humidity of the air at home. Follow up with your primary care provider in 1 week. Go to the ER for worsening symptoms or concerns. Patient Language: Turkmen Prescriptions: New amoxicillin-pot clavulanate 875-125 mg tablet 1 tablet PO Q12H 7 Days Qty: 14 0RF Follow-up/Referrals: Chalo,Jane Johnson APN [Primary Care Provider] - Time of Disposition: 12:46
== END 2025-04-25 12:47 | disposition home or self-care (01) ==
PROVIDERS: Emergency Provider Nurse Practitioner Family; PCP Nurse Practitioner Family
DX: J32.9 Chronic sinusitis, unspecified (principal)
CPT/HCPCS: 99203; G0463

== ENCOUNTER 2025-05-21 05:00 | Emergency (ER) | payer OTHER, SELFPAY ==
--- OUTSIDE RECORDS SUMMARY | 2025-05-21 05:02 | XMS_ITS | Clinical Summary ---
Author Organization [facility] [address] Address [address] [place] [address] Phone Care Team Providers Care Liquid Chlorine Operator Name Role Phone Jane Isabel NP Primary Care Provider + [phone] Usman Vazquez MD Unavailable + [phone] Allergies No known active allergies Medications PNV [...] on file Legal Sex Female 2:52 PM BAILING MACHINE OPERATOR Gender Identity Not on file Sexual Orientation [...] Comments Blood Pressure 110/77 08/29/2023 11:30 PM BAILING MACHINE OPERATOR Pulse 69 08/29/2023 11:30 PM BAILING MACHINE OPERATOR Temperature 36.7 C (98.1 F) 08/29/2023 5:41 PM BAILING MACHINE OPERATOR Respiratory Rate 16 08/29/2023 11:30 PM BAILING MACHINE OPERATOR Oxygen Saturation 99% 08/29/2023 11:30 PM BAILING MACHINE OPERATOR Inhaled Oxygen Concentration - - Weight 47.6 kg (105 lb) 08/29/2023 5:41 PM BAILING MACHINE OPERATOR Height 152.4 cm (5') 08/29/2023 5:41 PM BAILING MACHINE OPERATOR Body Mass Index 20.51 08/29/2023 5:41 PM BAILING MACHINE OPERATOR Plan of Treatment Health Maintenance Due Date Last Done Comments Cervical Cancer Screening 1997 Depression Screening 1997 Hepatitis C Screening 1997 Regular Well Visit/Exam 18-64 2015 Influenza Vaccine (#1) 2025 DTaP/Tdap/Td Vaccine (8 - Td or Tdap) 05/16/2031 05/16/2021, 02/27/2018, 02/10/2009, Additional history exists HPV Vaccines Completed 03/19/2012, 01/05, 02/10/2009 Hepatitis B Screening Completed 07/17/2013 , 04/04/1998, 02/01/1998, Additional history exists Pneumococcal vaccine <65 Aged Out No longer eligible based on patient's age to complete this topic Insurance [facility] Advance Directives For more information, please contact: [phone] * Full Code (Latest Code Status on [...] in case of cardiopulmonary arrest Care Teams Liquid Chlorine Operator Relationship Specialty Start Date End Date Jane Isabel NP [address] [place] [address] PCP - General Nurse Practitioner 12/25/22 Usman Vazquez MD [address] [facility] [address] [facility] [address] [place] [address] Mold Stamper Obstetrics and Gynecology 07/02/23
--- OUTSIDE RECORDS SUMMARY | 2025-05-21 05:02 | XMS_ITS | Continuity of Care Document ---
Author Organization [facility] Address [address] [place] [address] Phone Care Team Providers Care [employer] Principal Name Role Phone Unavailable Unavailable Unavailable Allergies, [...] Encounter [facility], [address], [place], [place], [id number] , [place] tel:[phone] [facility] No Information 7 No Information OFFICE OUTPT NEW 60 MIN [facility], [address], [place], [place], [id number] , [place] tel: [phone] [facility] BC consult (chief complaint) Encounter for other general counseling and advice on contraceptionExces sive bleeding in the premenopausal periodEncntr for emblem drawer in exam (general) (routine) w abnormal findings 1-201 [...]
--- OUTSIDE RECORDS SUMMARY | 2025-05-21 05:41 | XMS_ITS | Clinical Summary ---
Author Organization [facility] [address] Address [address] [place] [address] Phone Care Team Providers Care Cold Saw Operator Name Role Phone Jane Isabel NP Primary Care Provider + [phone] Usman Vazquez MD Unavailable + [phone] Allergies No known active allergies Medications PNV [...] on file Legal Sex Female 2:52 PM INSTALLATION COORDINATOR Gender Identity Not on file Sexual Orientation [...] Comments Blood Pressure 110/77 08/29/2023 11:30 PM INSTALLATION COORDINATOR Pulse 69 08/29/2023 11:30 PM INSTALLATION COORDINATOR Temperature 36.7 C (98.1 F) 08/29/2023 5:41 PM INSTALLATION COORDINATOR Respiratory Rate 16 08/29/2023 11:30 PM INSTALLATION COORDINATOR Oxygen Saturation 99% 08/29/2023 11:30 PM INSTALLATION COORDINATOR Inhaled Oxygen Concentration - - Weight 47.6 kg (105 lb) 08/29/2023 5:41 PM INSTALLATION COORDINATOR Height 152.4 cm (5') 08/29/2023 5:41 PM INSTALLATION COORDINATOR Body Mass Index 20.51 08/29/2023 5:41 PM INSTALLATION COORDINATOR Plan of Treatment Health Maintenance Due Date [...] patient's age to complete this topic Insurance [facility] Advance Directives For more information, please contact: [phone] * Full Code (Latest Code Status on [...] in case of cardiopulmonary arrest Care Teams Cold Saw Operator Relationship Specialty Start Date End Date Jane Isabel NP [address] [place] [address] PCP - General Nurse Practitioner 12/25/22 Usman Vazquez MD [address] [address] [address] [address] [facility] [address] [place] [address] Alumni Relations Officer Obstetrics and Gynecology 07/02/23
--- OUTSIDE RECORDS SUMMARY | 2025-05-21 05:41 | XMS_ITS | Continuity of Care Document ---
Author Organization [facility] Address [address] [place] [address] Phone Care Team Providers Care Automatic Corn Grinder Operator Name Role Phone Unavailable Unavailable Unavailable Allergies, [...] Encounter [facility], [address], [place], [place], [id number] , [place] tel:[phone] [facility] No Information 7 No Information OFFICE OUTPT NEW 60 MIN [facility], [address], [place], [place], [id number] , [place] tel: [phone] [facility] BC consult (chief complaint) Encounter for other general counseling and advice on contraceptionExces sive bleeding in the premenopausal periodEncntr for emt basic exam (general) (routine) w abnormal findings 1-201 7 No Information Family History Family Member Type Diagnosis Age At Onset Problem (finding) No family history of Ca ncer, ovarian Problem (finding) No family history of Ca ncer, colon Problem (finding) No family history of Ca ncer, breast Payers Payer name Insurance type Covered democrat ID Authoriza tion(s) No Information Social History [...]
== END 2025-05-21 06:11 | disposition left against medical advice (07) ==
LOC: ANHED 05:40
PROVIDERS: PCP Nurse Practitioner Family
DX: Z53.21 Procedure and treatment not carried out due to patient leaving prior to being seen by health care provider (principal)
CPT/HCPCS: 99199